=== PATIENT | male | born 1940 | race Caucasian/White ===

== ENCOUNTER → 2018-01-22 | Outpatient (CLI) | payer MEDICARE, BC ==
--- NOTE | 2018-01-23 06:56 | US ---
EXAMINATION TYPE: US carotid duplex BILAT DATE OF EXAM: 01/22/2018 COMPARISON: NONE CLINICAL HISTORY: H69.83 disorder of eustachian tube. EXAM MEASUREMENTS: RIGHT: Peak Systolic Velocity (PSV) cm/sec ----- Right CCA: 77.6 ----- Right ICA: 67.1 ----- Right ECA: 93.1 ICA/CCA ratio: 0.9 RIGHT: End Diastole cm/sec ----- Right CCA: 13.8 ----- Right ICA: 24.4 ----- Right ECA: 8.4 LEFT: Peak Systolic Velocity (PSV) cm/sec ----- Left CCA: 70.1 ----- Left ICA: 66.9 ----- Left ECA: 85.7 ICA/CCA ratio: 1.0 LEFT: End Diastole cm/sec ----- Left CCA: 13.3 ----- Left ICA: 23.3 ----- Left ECA: 4.4 VERTEBRALS (direction of flow): Right Vertebral: Antegrade Left Vertebral: Antegrade Rhythm: Normal Grayscale images show no significant plaque at carotid bulb level bilaterally. Velocity measurements and ratios in visualized portion of both internal carotid arteries is within normal limits. Tortuous course to the left internal carotid artery is noted by technologist. IMPRESSION: No hemodynamically significant stenosis is seen in either internal carotid artery.
--- NOTE | 2018-01-23 08:17 | ECHOF ---
Referral Reason:I63.9 Cerebral infarction R47.02 Dysphasia MEASUREMENTS -------- HEIGHT: 172.7 cm WEIGHT: 81.6 kg BP: 126/76 RVIDd: 3.4 cm (< 3.3) IVSd: 1.1 cm (0.6 - 1.1) LVIDd: 4.0 cm (3.9 - 5.3) LVPWd: 1.2 cm (0.6 - 1.1) IVSs: 1.4 cm LVIDs: 2.6 cm LVPWs: 1.4 cm LA Diam: 3.2 cm (2.7 - 3.8) LAESV Index (A-L): 26.00 ml/m Ao Diam: 3.3 cm (2.0 - 3.7) AV Cusp: 2.2 cm (1.5 - 2.6) MV EXCURSION: 15.293 mm (> 18.000) MV EF SLOPE: 33 mm/s (70 - 150) EPSS: 0.1 cm MV E Anthony: 0.74 m/s MV DecT: 197 ms MV A Anthony: 0.67 m/s MV E/A Ratio: 1.11 RAP: 5.00 mmHg RVSP: 37.14 mmHg FINDINGS -------- Sinus rhythm. This was a technically good study. The left ventricular size is normal. There is borderline concentric left ventricular hypertrophy. Overall left ventricular systolic function is normal with, an EF between 60 - 65 %. The right ventricle is mildly enlarged. Normal LA size by volume 22+/-6 ml/m2. The right atrium is normal in size. The aortic valve is trileaflet and appears structurally normal. The mitral valve is normal. Mild tricuspid regurgitation present. There is mild pulmonary hypertension. The right ventricular systolic pressure, as measured by Doppler, is 37.14mmHg. Trace/mild (physiologic) pulmonic regurgitation. The aortic root size is normal. Normal inferior vena cava with normal inspiratory collapse consistent with estimated right atrial pre ssure of 5 mmHg. There is no pericardial effusion. CONCLUSIONS -------- 1. Sinus rhythm. 2. This was a technically good study. 3. The left ventricular size is normal. 4. There is borderline concentric left ventricular hypertrophy. 5. Overall left ventricular systolic function is normal with, an EF between 60 - 65 %. 6. The right ventricle is mildly enlarged. 7. Normal LA size by volume 22+/-6 ml/m2. 8. The right atrium is normal in size. 9. The aortic valve is trileaflet and appears structurally normal. 10. The mitral valve is normal. 11. Mild tricuspid regurgitation present. 12. There is mild pulmonary hypertension. 13. The right ventricular systolic pressure, as measured by Doppler, is 37.14mmHg. 14. Trace/mild (physiologic) pulmonic regurgitation. 15. The aortic root size is normal. 16. Normal inferior vena cava with normal inspiratory collapse consistent with estimated right atrial pressure of 5 mmHg. 17. There is no pericardial effusion. INTEGRITY CONSULTANT: Loree Ndiaye RDCS
== END | disposition home or self-care (01) ==
LOC: RADECHMAIN 14:48
PROVIDERS: ATTEND Family Medicine
DX: I07.1 Rheumatic tricuspid insufficiency (principal); I27.20 Pulmonary hypertension, unspecified; I63.9 Cerebral infarction, unspecified
CPT/HCPCS: 93306; 93880

== ENCOUNTER → 2018-01-23 | Outpatient (CLI) | payer MEDICARE, BC ==
--- NOTE | 2018-01-23 23:43 | MR ---
History slurred speech. Visual disturbances. Comparison none. TECHNIQUE: Multiplanar multiecho imaging of the brain was performed with no contrast. FINDINGS: There is diffuse cerebral cortical atrophy. There is no mass effect nor midline shift. There is no si gn of intracranial hemorrhage. There is no evidence of a cortical infarct. There is multiple foci of abnormal increased signal in the moreno-white matter junction of both cerebral hemispheres total number is approximately 25 and some of these measure up to 1 cm. There is a 12 mm focus of increased signal in the lateral left thalamus consistent with lacunar infarct. There is a 12 mm area of white matter increased signal in the left temporal lobe consistent with additional lacunar infarct. The brainstem appears intact. Sella turcica appears normal. The left thalamic and left temporal lobe lesions have increased signal on the diffusion images suggestive of more acute infarct. There is some mucosal thickening in the maxillary and ethmoid sinuses. There is no evidence of orbita l mass. CONCLUSION: Cerebral atrophy. Numerous white matter lesions that measure up to 5 mm consistent with chronic small vessel ischemia. There are larger foci in the left thalamus and left temporal lobe consistent with a cute or subacute infarcts. No evidence of a cortical infarct. Ethmoid and maxillary sinusitis.
== END | disposition home or self-care (01) ==
LOC: RADMRIMAIN 18:34
PROVIDERS: ATTEND Family Medicine
DX: G31.9 Degenerative disease of nervous system, unspecified (principal); R90.82 White matter disease, unspecified
CPT/HCPCS: 70551

== ENCOUNTER → 2018-02-03 | Outpatient (CLI) | payer MEDICARE, BC ==
--- NOTE | 2018-02-03 11:40 | FL ---
Modified barium swallow. HISTORY: Dysphagia. Modified barium swallow was performed with the department of speech pathology. The patient was prese nted with various consistencies of barium. There is no evidence for aspiration or penetration. Full report is to follow from the department of speech pathology. Impression: No evidence for aspiration or penetration.
== END | disposition home or self-care (01) ==
LOC: RADFLMAIN 10:43
PROVIDERS: ATTEND Otolaryngology
DX: R13.10 Dysphagia, unspecified (principal)
CPT/HCPCS: 74230

== ENCOUNTER 2021-10-28 22:54 | Inpatient (IN) | payer BC, MEDICARE ==
[2021-10-28] MEDS ORDERED: NITROGLYCERIN OINT 1 INCH/GM PACKET TOPICAL STA (23:04)
--- NOTE | 2021-10-28 23:14 | ED ---
General Adult HPI - General Stated complaint: NSTEMI Time Seen by Provider: 10/28/21 22:57 Source: patient, RN notes reviewed, old records reviewed Mode of arrival: EMS - History of Present Illness Initial comments: 80-year-old male presenting as transfer from outside hospital with non-ST segment elevated [place]. Patient had chest pain radiating to his arms and upper back which is been present for the past several days. He had an initial negative troponin but his troponin did mildly elevated to 0.045. He was given nitroglycerin with resolution of his pain and Lovenox. He was transferred for cardiology evaluation. Patient denied associated diaphoresis or nausea. No significant pain at the time my evaluation. No previous history of CAD. - Related Data Home Medications Medication Instructions Recorded Confirmed Aspirin EC [Ecotrin] 325 mg PO DAILY 10/28/21 10/28/21 Desloratadine 5 mg PO HS 10/28/21 10/28/21 Krill Oil 500 mg PO DAILY 10/28/21 10/28/21 atenoloL [Tenormin] 25 mg PO HS 10/28/21 10/28/21 Allergies Allergy/AdvReac Type Severity Reaction Status Date / Time No Known Allergies Allergy Unverified 10/28/21 23:36 Review of Systems ROS Statement: Those systems with pertinent positive or pertinent negative responses have been documented in the HPI. ROS Other: All systems not noted in ROS Statement are negative. Past Medical History Past Medical History: Hypertension Additional Past Medical History / Comment(s): glaucoma, History of Any Multi-Drug Resistant Organisms: None Reported Additional Past Surgical History / Comment(s): hernia-groin Past Psychological History: No Psychological Hx Reported Smoking Status: Never smoker Past Alcohol Use History: Rare Past Drug Use History: None Reported General Exam General appearance: alert, in no apparent distress Head exam: Present: atraumatic, normocephalic Eye exam: Present: normal appearance, PERRL ENT exam: Present: normal exam Neck exam: Present: normal inspection. Absent: tenderness, meningismus Respiratory exam: Present: normal lung sounds bilaterally. Absent: respiratory distress, wheezes Cardiovascular Exam: Present: regular rate, normal rhythm GI/Abdominal exam: Present: soft. Absent: distended, tenderness, guarding Extremities exam: Present: normal inspection, normal capillary refill. Absent: pedal edema Back exam: Present: normal inspection Neurological exam: Present: alert, CN II-XII intact. Absent: motor sensory deficit Psychiatric exam: Present: normal affect, normal mood Skin exam: Present: warm, dry, intact. Absent: cyanosis, diaphoretic Course Vital Signs 10/28/21 23:09 Temperature 98.3 F Pulse Rate 65 Respiratory 15 Rate Blood Pressure 175/93 O2 Sat by Pulse 98 Oximetry EKG Findings - EKG Comments: EKG Findings:: EKG: Normal sinus rhythm, no ST segment elevation rate of 70, UT interval 112, QRS duration 86, QTC 414 Medical Decision Making - Medical Decision Making 80-year-old male with episode of chest pain and mildly elevated troponin. Upon arrival EKG showing sinus rhythm without ST segment elevation. Patient has essentially no active chest pain. He will be admitted to a monitored bed. I did discuss case with Dr. Oneil who will admit. He had received Lovenox and aspirin prior to transfer as well as sublingual nitro. He he's given Nitropaste in the emergency department. All laboratory testing will be repeated clinic CBC, CMP, PT/INR and troponin. Troponin levels will be trended. - Lab Data Result diagrams: 10/28/21 23:19 Lab Results 10/28/21 Range/Units 23:19 WBC 6.3 (3.8-10.6) k/uL RBC 4.32 (4.30-5.90) m/uL Hgb 14.8 (13.0-17.5) gm/dL Hct 44.3 (39.0-53.0) % MCV 102.5 H (80.0-100.0) fL MCH 34.1 (25.0-35.0) pg MCHC 33.3 (31.0-37.0) g/dL RDW 13.5 (11.5-15.5) % Plt Count 160 (150-450) k/uL MPV 8.3 Neutrophils % 55 % Lymphocytes % 32 % Monocytes % 6 % Eosinophils % 5 % Basophils % 1 % Neutrophils # 3.5 (1.3-7.7) k/uL Lymphocytes # 2.0 (1.0-4.8) k/uL Monocytes # 0.3 (0-1.0) k/uL Eosinophils # 0.3 (0-0.7) k/uL Basophils # 0.0 (0-0.2) k/uL Macrocytosis Slight Disposition Clinical Impression: Acute non-ST elevation myocardial infarction (NSTEMI) Disposition: ADMITTED IP TO THIS HOSP Condition: Stable Is patient prescribed a controlled substance at d/c from ED?: No Referrals: Jamal Oneil MD [Primary Care Provider] - 1-2 days Decision to Admit Reason: Admit from EC Decision Date: 10/28/21 Decision Time: 23:55
[2021-10-28] MEDS ORDERED: MORPHINE SULFATE 2 MG/ML SYRINGE IVP PRN (23:23)
[2021-10-28] MEDS ORDERED: ATORVASTATIN 40 MG TAB PO SCH (23:30)
[2021-10-28 23:34] LABS: Basophils % (A) 1 %; Eosinophils # (A) 0.3 k/uL (0-0.7); Eosinophils % (A) 5 %; HCT 44.3 % (39.0-53.0); HGB 14.8 gm/dL (13.0-17.5); Lymphocytes % (A) 32 %; MCH 34.1 pg (25.0-35.0); MCHC 33.3 g/dL (31.0-37.0); MCV 102.5 fL (80.0-100.0); Macrocytosis Slight; Mean Platelet Volume 8.3; Monocytes # (A) 0.3 k/uL (0-1.0); Monocytes % (A) 6 %; Neutrophils # (A) 3.5 k/uL (1.3-7.7); Neutrophils % (A) 55 %; Platelet Count 160 k/uL (150-450); RBC 4.32 m/uL (4.30-5.90); RDW 13.5 % (11.5-15.5); WBC 6.3 k/uL (3.8-10.6)
[2021-10-28 23:44] LABS: ALT 18 U/L (4-49); African American GFR (CKD) >90 (>60 ml/min/1.73 sqM); Anion Gap 6 mmol/L; Blood Urea Nitrogen 14 mg/dL (9-20); Calcium 9.3 mg/dL (8.4-10.2); Carbon Dioxide 26 mmol/L (22-30); Chloride 106 mmol/L (98-107); Glucose 99 mg/dL (74-99); Non-African American GFR(CKD) 80 (>60 ml/min/1.73 sqM); Sodium 138 mmol/L (137-145)
[2021-10-28 23:49] LABS: Magnesium 2.2 mg/dL (1.6-2.3); Potassium 5.7 mmol/L (3.5-5.1)
[2021-10-28 23:50] LABS: AST 43 U/L (17-59); Albumin 4.4 g/dL (3.5-5.0); Alkaline Phosphatase 51 U/L (38-126); Total Bilirubin 1.4 mg/dL (0.2-1.3); Total Protein 7.7 g/dL (6.3-8.2)
[2021-10-29 00:07] LABS: INR 1.3 (<1.2); Partial Thromboplastin Time 32.2 sec (22.0-30.0); Prothrombin Time 13.1 sec (9.0-12.0)
[2021-10-29] MEDS: NITROGLYCERIN OINT 1 INCH/GM PACKET TOPICAL SCH ×3 (00:55→18:50)
[2021-10-29] MEDS ORDERED: HEPARIN SODIUM 1,000 UN/ML (10ML VL) IV PRN (08:21)
[2021-10-29] MEDS ORDERED: HEPARIN SODIUM 1,000 UN/ML (10ML VL) IV ONE (08:21)
[2021-10-29] MEDS ORDERED: ALPRAZolam 0.25 MG TAB PO PRN (08:22)
[2021-10-29] MEDS ORDERED: ATORVASTATIN 80 MG TAB PO STA (08:22)
[2021-10-29] MEDS ORDERED: NITROGLYCERIN SL TABS 0.4 MG TAB SUBLINGUAL PRN ×2 (08:22→12:03)
[2021-10-29] MEDS ORDERED: ALPRAZolam 0.5 MG TAB PO PRN (08:22)
[2021-10-29] MEDS ORDERED: ASPIRIN 325 MG TAB PO STA (08:22)
[2021-10-29] MEDS ORDERED: HEPARIN SOD,PORK IN 0.45% NACL 25,000 UNIT in 0.45% NACL 1 250ML.BAG IV SCH (08:30)
[2021-10-29] MEDS ORDERED: ASPIRIN 81 MG PO SCH (09:00)
[2021-10-29] MEDS ORDERED: ASPIRIN 325 MG TAB PO SCH (09:00)
[2021-10-29 09:17] LABS: Chol/HDL Ratio 6.12 Ratio; LDL Cholesterol,Calculated 121.6 mg/dL (0.0-131.0)
[2021-10-29] MEDS: METOPROLOL TARTRATE 25 MG TAB PO SCH ×2 (09:27→19:58)
--- NOTE | 2021-10-29 10:31 | P.CRDCN ---
History of Present Illness Consult date: 10/29/21 History of present illness: HISTORY OF PRESENT ILLNESS: This is a 80-year-old male with a past medical history significant for hypertension and hyperlipidemia (not on rx meds for HLD). 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 We have been asked to see the patient in consultation for chest pain. Patient initially presented to [facility] with a chief complaint of chest pain. The patient was transferred to [facility] for further e valuation. Patient examined at the bedside. Patient states over the past week he has been having episodes of chest discomfort. He states the pain is a pressure-like sensation that goes into both of his arms. He also reports some numbness of his fingertips. He reports radiation into his back and in between his shoulder blades as well. He reports the pain is mostly with exertion such as walking to the mailbox. He states the pain is not worse with a deep breath or chest wall palpation. The patient denies any previous cardiac history. He denies having a previous stress test or cardiac catheterization. The patient is a lifetime nonsmoker. He denies any alcohol use. He also denies any drug use including marijuana. This morning he is complaining of mild chest pain with a reading of 1/10. EKG reveals sinus mechanism with nonspecific ST-T wave changes Laboratory data: WBC 6.2. Hemoglobin 14.8. Platelet count 160. Sodium 138. Potassium 5.7. BUN 14. Creatinine 0.91. Troponin 0.056. 0.075. Current home cardiac medications include aspirin 325 mg daily and atenolol 25 mg at night REVIEW OF SYSTEMS: At the time of my exam: CONSTITUTIONAL: Denies fever or chills. HEENT: Denies blurred vision, vision changes, or eye pain. Denies hemoptysis CARDIOVASCULAR: + chest pain. Denies orthopnea. Denies PND. Denies palpitations RESPIRATORY: Denies shortness of breath. GASTROINTESTINAL: Denies abdominal pain. Denies nausea or vomiting. HEMATOLOGIC: Denies bleeding disorders. GENITOURINARY: Denies any blood in urine. SKIN: Denies pruitis. Denies rash. PHYSICAL EXAM: VITAL SIGNS: Reviewed. GENERAL: Well-developed in no acute distress. HEENT: Head is normocephalic. Pupils are equal, round. Sclerae anicteric. Mucous membranes of the mouth are moist. Neck supple. No JVD or thyromegaly LUNGS: Respirations even and unlabored. Lungs essentially clear to auscultation bilaterally. HEART: Regular rate and rhythm. S1 and S2 heard. ABDOMEN: Soft. Nondistended. Nontender. EXTREMITIES: Normal range of motion. No clubbing or cyanosis. Peripheral pulses intact. No lower extremity edema NEUROLOGIC: Awake and alert. Oriented x 3. ASSESSMENT: Non-STEMI Hypertension Hyperlipidemia PLAN: Obtain 2D echo to assess cardiac structure and function Continue current cardiac medications including aspirin, atorvastatin, metoprolol, and nitro paste It is noted that the patient has an anaphylactic allergy to LYNDA inhibitors Begin IV heparin infusion NPO Patient undergo cardiac catheterization today with Dr. Awan Further recommendations pending patient's course Nurse practitioner note has been reviewed by physician. Signing provider agrees with the documented findings, assessment, and plan of care. Past Medical History Past Medical History: Hypertension Additional Past Medical History / Comment(s): COVID (08/23/21) glaucoma History of Any Multi-Drug Resistant Organisms: None Reported Additional Past Surgical History / Comment(s): hernia-groin Past Anesthesia/Blood Transfusion Reactions: No Reported Reaction Past Psychological History: No Psychological Hx Reported Smoking Status: Never smoker Past Alcohol Use History: Rare Past Drug Use History: None Reported - Past Family History Father Family Medical History: Myocardial Infarction (ID) Brother(s) Family Medical History: Myocardial Infarction (ID) Medications and Allergies Home Medications Medication Instructions Recorded Confirmed Type Aspirin EC [Ecotrin] 325 mg PO DAILY 10/28/21 10/28/21 History Brimonidine Tartrate/Timolol 1 drop BOTH EYES BID 10/28/21 10/28/21 History [Combigan 0.2%-0.5% Eye Drops] Desloratadine 5 mg PO HS 10/28/21 10/28/21 History Krill Oil 500 mg PO DAILY 10/28/21 10/28/21 History Travoprost [Travoprost 0.004%] 1 drop BOTH EYES HS 10/28/21 10/28/21 History atenoloL [Tenormin] 25 mg PO HS 10/28/21 10/28/21 History Allergies Allergy/AdvReac Type Severity Reaction Status Date / Time LYNDA Inhibitors Allergy Anaphylaxis Verified 10/29/21 00:24 Physical Exam Vitals: Vital Signs Temp Pulse Pulse Resp BP BP Pulse Ox 10/29/21 04:00 98 F 71 16 138/73 97 10/29/21 00:56 97.7 F 71 18 180/80 97 10/29/21 00:38 97.7 F 76 15 149/85 98 10/28/21 23:09 98.3 F 65 15 175/93 98 Intake and Output 10/28/21 10/29/21 10/29/21 22:59 06:59 14:59 Other: Voiding Method Toilet Weight 72.575 kg Results 10/28/21 23:19 10/28/21 23:19 Cardiac Enzymes 10/28/21 10/28/21 10/29/21 Range/Units 23:19 23:19 02:22 AST 43 (17-59) U/L Troponin I 0.065 H* 0.075 H* (0.000-0.034) ng/mL Coagulation 10/28/21 Range/Units 23:19 PT 13.1 H (9.0-12.0) sec APTT 32.2 H (22.0-30.0) sec CBC 10/28/21 Range/Units 23:19 WBC 6.3 (3.8-10.6) k/uL RBC 4.32 (4.30-5.90) m/uL Hgb 14.8 (13.0-17.5) gm/dL Hct 44.3 (39.0-53.0) % Plt Count 160 (150-450) k/uL Comprehensive Metabolic Panel 10/28/21 Range/Units 23:19 Sodium 138 (137-145) mmol/L Potassium 5.7 H (3.5-5.1) mmol/L Chloride 106 (98-107) mmol/L Carbon Dioxide 26 (22-30) mmol/L BUN 14 (9-20) mg/dL Creatinine 0.91 (0.66-1.25) mg/dL Glucose 99 (74-99) mg/dL Calcium 9.3 (8.4-10.2) mg/dL AST 43 (17-59) U/L ALT 18 (4-49) U/L Alkaline Phosphatase 51 (38-126) U/L Total Protein 7.7 (6.3-8.2) g/dL Albumin 4.4 (3.5-5.0) g/dL Current Medications Generic Name Dose Route Start Last Admin Trade Name Freq PRN Reason Stop Dose Admin Aspirin 325 mg 10/29/21 09:00 Aspirin 325 Mg Tab PO DAILY [facility] Atorvastatin Calcium 40 mg 10/28/21 23:30 10/29/21 00:34 Atorvastatin 40 Mg Tab PO 40 mg HS [facility] Administration Metoprolol Tartrate 25 mg 10/29/21 09:00 Metoprolol Tartrate 25 Mg Tab PO BID [facility] Morphine Sulfate 2 mg 10/28/21 23:23 Morphine Sulfate 2 Mg/Ml Syringe IVP Q5M PRN Chest Pain Nitroglycerin 1 inch 10/29/21 00:00 10/29/21 06:36 Nitroglycerin Oint 1 Inch/Gm Packet TOPICAL 1 inch Q6HR [facility] Administration Intake and Output 10/28/21 10/29/21 10/29/21 22:59 06:59 14:59 Other: Voiding Method Toilet Weight 72.575 kg 10/28/21 23:19 10/28/21 23:19
[2021-10-29 10:39] LABS: Basophils % (A) 0 %; Eosinophils # (A) 0.3 k/uL (0-0.7); Eosinophils % (A) 4 %; HCT 42.8 % (39.0-53.0); Lymphocytes # (A) 1.3 k/uL (1.0-4.8); Lymphocytes % (A) 20 %; MCH 33.9 pg (25.0-35.0); MCHC 32.6 g/dL (31.0-37.0); Macrocytosis Slight; Mean Platelet Volume 8.2; Monocytes # (A) 0.4 k/uL (0-1.0); Monocytes % (A) 6 %; Neutrophils # (A) 4.6 k/uL (1.3-7.7); Neutrophils % (A) 69 %; Platelet Count 153 k/uL (150-450); RBC 4.12 m/uL (4.30-5.90); WBC 6.7 k/uL (3.8-10.6)
[2021-10-29] MEDS ORDERED: LIDOCAINE 1% INJ 10MG/ML (20 ML MDV) ONE (10:51)
[2021-10-29] MEDS ORDERED: VERAPAMIL 2.5 MG/ML 2 ML AMP ONE (10:51)
[2021-10-29] MEDS ORDERED: fentaNYL (PF) 50 MCG/ML 2 ML AMP ONE (10:51)
[2021-10-29] MEDS ORDERED: HEPARIN SODIUM 1,000 UN/ML (10ML VL) ONE (10:51)
[2021-10-29] MEDS ORDERED: IV FLUID CONTINUATION 1,000 ML IV ONE (10:57)
[2021-10-29] MEDS ORDERED: fentaNYL (PF) 50 MCG/ML 2 ML AMP IV ONE (11:17)
[2021-10-29] MEDS ORDERED: LIDOCAINE 1% INJ 10MG/ML (20 ML MDV) SQ ONE (11:18)
[2021-10-29] MEDS: VERAPAMIL SYRINGE (5 MG/10 ML) INTRAARTER ONE ×2 (11:20→11:33)
[2021-10-29] MEDS ORDERED: TICAGRELOR 90 MG TAB ONE (11:30)
--- NOTE | 2021-10-29 11:30 | ECHOF ---
Referral Reason:nstemi MEASUREMENTS -------- HEIGHT: 175.3 cm WEIGHT: 72.6 kg BP: RVIDd: 2.9 cm (< 3.3) IVSd: 1.3 cm (0.6 - 1.1) LVIDd: 4.3 cm (3.9 - 5.3) LVPWd: 1.2 cm (0.6 - 1.1) IVSs: 1.7 cm LVIDs: 3.2 cm LVPWs: 1.7 cm LA Diam: 3.6 cm (2.7 - 3.8) LAESV Index (A-L): 33.23 ml/m Ao Diam: 3.3 cm (2.0 - 3.7) AV Cusp: 1.9 cm (1.5 - 2.6) LA Diam: 3.7 cm (2.7 - 3.8) MV EXCURSION: 17.354 mm (> 18.000) MV EF SLOPE: 20 mm/s (70 - 150) EPSS: 0.4 cm MV E Anthony: 0.49 m/s MV DecT: 291 ms MV A Anthony: 0.63 m/s MV E/A Ratio: 0.77 RAP: 5.00 mmHg RVSP: 37.51 mmHg FINDINGS -------- Sinus rhythm. This was a technically good study. The left ventricular size is normal. There is mild concentric left ventricular hypertrophy. The right ventricle is normal in size. LA is midly dilated 29-33ml/m2. The right atrial size is normal. There is mild aortic valve sclerosis. There is no evidence of aortic regurgitation. Mild mitral regurgitation is present. Mild tricuspid regurgitation present. There is mild pulmonary hypertension. The right ventricular systolic pressure, as measured by Doppler, is 37.51mmHg. Trace/mild (physiologic) pulmonic regurgitation. There is no pericardial effusion. CONCLUSIONS -------- 1. The left ventricular size is normal. 2. There is mild concentric left ventricular hypertrophy. 3. The right ventricle is normal in size. 4. LA is midly dilated 29-33ml/m2. 5. The right atrial size is normal. 6. There is mild aortic valve sclerosis. 7. Mild mitral regurgitation is present. 8. Mild tricuspid regurgitation present. 9. There is mild pulmonary hypertension. 10. The right ventricular systolic pressure, as measured by Doppler, is 37.51mmHg. 11. Trace/mild (physiologic) pulmonic regurgitation. 12. There is no pericardial effusion. A AND P MECHANIC: Gissel Cowan RDCS
[2021-10-29] MEDS ORDERED: TICAGRELOR 90 MG TAB PO ONE (11:32)
--- NOTE | 2021-10-29 11:39 | P.HPIM ---
History of Present Illness H&P Date: 10/29/21 Chief Complaint: NSTEMI transferred from [facility] This is a 80-year-old gentleman with past medical history of hypertension, covid (08/23/21), glaucoma, hyperlipidemia, hypertension,transferred in from [facility] with elevated troponins,0.065,0.075, EKG reporting normal sinus rhythm with non specific ST segment elevation, chest pressure in bilateral arms radiating up into his shoulder blades worsened by exertion-recurring episodes, worsening over the last week. No reproducible chest pain. This morning complains of mild chest pressure, denies lightheadedness dizziness or focal deficits. Denies shortness of breath. Potassium on admission 5.7, repeat level ordered, INR 1.3-decreased to 1. Hematology unremarkable with the exception of elevated MCV, 104. Denies alcohol or polysubstance use. Lipid panel reporting triglycerides 191, cholesterol 191, LDL 121.6, HDL 31.2, not on statin at home. Coronavirus not detected. Evaluated by cardiology, recommendations noted and appreciated. Review of Systems ROS Statement: Those systems with pertinent positive or pertinent negative responses have been documented in the HPI. ROS Other: All systems not noted in ROS Statement are negative. Past Medical History Past Medical History: Hypertension Additional Past Medical History / Comment(s): COVID (08/23/21) glaucoma History of Any Multi-Drug Resistant Organisms: None Reported Additional Past Surgical History / Comment(s): hernia-groin Past Anesthesia/Blood Transfusion Reactions: No Reported Reaction Past Psychological History: No Psychological Hx Reported Smoking Status: Never smoker Past Alcohol Use History: Rare Past Drug Use History: None Reported - Past Family History Father Family Medical History: Myocardial Infarction ([place]) Brother(s) Family Medical History: Myocardial Infarction ([place]) Medications and Allergies Home Medications Medication Instructions Recorded Confirmed Type Aspirin EC [Ecotrin] 325 mg PO DAILY 10/28/21 10/28/21 History Brimonidine Tartrate/Timolol 1 drop BOTH EYES BID 10/28/21 10/28/21 History [Combigan 0.2%-0.5% Eye Drops] Desloratadine 5 mg PO HS 10/28/21 10/28/21 History Krill Oil 500 mg PO DAILY 10/28/21 10/28/21 History Travoprost [Travoprost 0.004%] 1 drop BOTH EYES HS 10/28/21 10/28/21 History atenoloL [Tenormin] 25 mg PO HS 10/28/21 10/28/21 History Allergies Allergy/AdvReac Type Severity Reaction Status Date / Time LYNDA Inhibitors Allergy Anaphylaxis Verified 10/29/21 00:24 Physical Exam Vitals: Vital Signs Temp Pulse Pulse Resp BP BP Pulse Ox 10/29/21 08:00 71 16 159/83 97 10/29/21 04:00 98 F 71 16 138/73 97 10/29/21 00:56 97.7 F 71 18 180/80 97 10/29/21 00:38 97.7 F 76 15 149/85 98 10/28/21 23:09 98.3 F 65 15 175/93 98 Intake and Output 10/28/21 10/29/21 10/29/21 22:59 06:59 14:59 Other: Voiding Method Toilet Weight 72.575 kg PHYSICAL EXAM: VITAL SIGNS: [As above] GENERAL: Sitting up in bed, no acute distress HEENT: Conjunctivae normal. eyes normal. NECK: No JVD. No thyroid enlargement. No LNs CARDIOVASCULAR: S1, S2 regular. No murmur RESPIRATION: Breath sounds diminished in the bases. No rhonchi or crackles. No bronchial breathing. ABDOMEN: Soft, nontender . No guarding. no masses palpable. No ascites, No hepatosplenomegaly.Bowel sounds heard. LEGS: No edema. no swelling PSYCHIATRY: Alert and oriented X3, mood and affect normal. NERVOUS SYSTEM: Cranial N 2-12 grossly normal. No focal deficits. Strength and sensation grossly intact. Skin: Warm and dry, no rash Results CBC & Chem 7: 10/29/21 10:05 10/28/21 23:19 Labs: Abnormal Lab Results - Last 24 Hours (Table) 10/28/21 10/28/21 10/28/21 Range/Units 23:19 23:19 23:19 RBC (4.30-5.90) m/uL MCV 102.5 H (80.0-100.0) fL PT 13.1 H (9.0-12.0) sec INR 1.3 H (<1.2) APTT 32.2 H (22.0-30.0) sec Potassium 5.7 H (3.5-5.1) mmol/L Total Bilirubin 1.4 H (0.2-1.3) mg/dL Troponin I (0.000-0.034) ng/mL Triglycerides (0.00-149.00) mg/dL HDL Cholesterol (40.00-60.00) mg/dL 10/28/21 10/29/21 10/29/21 Range/Units 23:19 02:22 02:22 RBC (4.30-5.90) m/uL MCV (80.0-100.0) fL PT (9.0-12.0) sec INR (<1.2) APTT (22.0-30.0) sec Potassium (3.5-5.1) mmol/L Total Bilirubin (0.2-1.3) mg/dL Troponin I 0.065 H* 0.075 H* (0.000-0.034) ng/mL Triglycerides 191.00 H (0.00-149.00) mg/dL HDL Cholesterol 31.20 L (40.00-60.00) mg/dL 10/29/21 Range/Units 10:05 RBC 4.12 L (4.30-5.90) m/uL MCV 104.0 H (80.0-100.0) fL PT (9.0-12.0) sec INR (<1.2) APTT (22.0-30.0) sec Potassium (3.5-5.1) mmol/L Total Bilirubin (0.2-1.3) mg/dL Troponin I (0.000-0.034) ng/mL Triglycerides (0.00-149.00) mg/dL HDL Cholesterol (40.00-60.00) mg/dL Thrombosis Risk Factor Assmnt - Choose All That Apply Each Factor Represents 1 point: Acute [place] Each Risk Factor Represents 3 Points: Age 75 years or older Other congenital or acquired thrombophilia - If yes, enter type in comment: No Thrombosis Risk Factor Assessment Total Risk Factor Score: 4 Thrombosis Risk Factor Assessment Level: Moderate Risk Assessment and Plan Assessment: Acute Non-STEMI ALLERGY, anaphylactic to LYNDA inhibitors Hyperkalemia, repeat is pending Hypertension Hyperlipidemia Plan: Continue on current medication regime ,monitoring and symptomatic t reatment. Anticoagulated with IV heparin drip.Maintain statin, aspirin, beta sandra, nitroglycerin benita. Repeat potassium level pending. 2-D echo, cardiac catheterization pending. The impression and plan of care has been dictated as directed. : I performed a history and examination of this patient, discussed the same with the dictator. I agree with the dictator's note ,documented as a scribe. Any additional findings or plans will be noted.
[2021-10-29] MEDS ORDERED: NITROGLYCERIN 1000MCG/10ML SYRINGE INTRACORON ONE (11:44)
[2021-10-29] MEDS ORDERED: IOPAMIDOL-370 125ML BTL INJ ONE (11:49)
[2021-10-29] MEDS ORDERED: IOPAMIDOL-370 100ML BTL INJ ONE (11:53)
[2021-10-29] MEDS ORDERED: ATROPINE SULFATE 0.1 MG/ML 10ML SYRINGE IV PRN (12:03)
[2021-10-29] MEDS ORDERED: ZOLPIDEM 5 MG TAB PO PRN (12:03)
[2021-10-29] MEDS ORDERED: MAG HYDROX/AL HYDROX/SIMETH 30 ML CUP PO PRN (12:03)
[2021-10-29] MEDS ORDERED: RX INFO: IV CONTRAST WAS GIVEN 1 EACH MISC MISCELLANE PRN (12:03)
--- NOTE | 2021-10-29 12:12 | P.CARDCATH ---
Date of Procedure: 10/29/21 Description of Procedure: Cardiac Catheterization: The patient presented with symptoms of new onset exertional chest discomfort, radiating to the arm and to the back. He had mild troponin elevation consistent with non-STEMI. He has a history of hypertension and hyperlipidemia but no documented CAD. Recommendations were made regarding cardiac catheterization, the risks and the complications were discussed with the patient who is in full understanding and agreement. Procedure Description: Patient was brought to component lab tech in fasting semi-sedated state after receiving Fentanyl and Benadryl achieiving moderate conscious sedated state. Using Xylocaine Anesthesia and Seldinger technique, a 6-Portuguese sheath was introduced in the right radial artery . Subsequently, selective right the left coronary angiography performed using a 5- Portuguese 3.5 bend Sofia catheter. Multiple views of the coronary artery including hemiaxial views were obtained. The pigtail catheter was used to cross the aortic valve and LVEDP was calculated. Following that, catheter was removed. There was no immediate complication. Of note, the patient received a total of 6 units of intravenous heparin as well as intra-arterial verapamil. There was no immediate complications. Images were reviewed Findings: Fluoroscopy: There is calcifications involving the LAD Left main: Is a large size vessel, bifurcating into LAD and left circumflex, left main has no evidence of high-grade stenosis. LAD: This is a large size vessel, reaches to the apex with a wraparound the apex segment, giving rise to a large proximal diagonal branch that has intimal disease up to 70% proximally. The proximal LAD at the takeoff of the diagonal branch is calcified and has about a 40% stenosis, in the midsegment of the LAD after the septal appliance painter and refinisher there is a 99% stenosis. The rest of the vessel has no high-grade stenosis. Left circumflex: This is a dominant large size vessel, giving rise to a large proximal obtuse marginal branch, distally bifurcating into PDA and PLV, the circumflex has mild intimal disease with no high-grade stenosis. RCA: This is a nondominant small-sized vessel, has a superior takeoff, the right coronary artery mid segment has a 40-50% stenosis. Left Ventriculogram: Was not performed Hemodynamics: There was no gradient across the aortic valve, LVEDP 20-25 mmHg Conclusion: 1. Calcified LAD 2. Severe stenosis in the mid LAD 3. Mild to moderate disease in proximal LAD and mid RCA 4. Elevated LVEDP Recommendations: In view of the presentations and the symptoms have recommended to proceed with angioplasty and stenting of the LAD, the procedure and the risks were discussed with the patient and he is in full understanding and agreement.
[2021-10-29] MEDS ORDERED: SODIUM CHLORIDE 0.9% 1,000 ML in EMPTY BAG 1 BAG IV SCH (12:15)
--- NOTE | 2021-10-29 12:17 | P.CARDCATH ---
Date of Procedure: 10/29/21 Description of Procedure: PERCUTANEOUS TRANSLUMINAL CORONARY ANGIOPLASTY CLINICAL INFORMATION: The patient has a history of hypertension and hyperlipidemia who presented with non-STEMI, his cardiac catheterization showed critical stenosis in the mid LAD. Recommendations were made regarding angioplasty and stenting, the procedure as well as the risk and the complications were discussed with the patient. PROCEDURE: A 6 Lithuanian 3.75 EBU guiding catheter was introduced into the system. After cannulating the left main, a 0.014 balanced medium J-wire was advanced across the lesion and positioned distally. Following that a 2.5 x 12 mm Treck balloon was advanced into inflation at 8 presley were done. Following that a [3.0 x 18 mm [facility]] stent was deployed. It was dilated at 16. After the last inflation, after appropriate wait, the balloon and the guidewire were withdrawn back into the guiding catheter. Images were obtained and repeated. Those images reveal stable successful stenting. At that point, the guiding catheter, the balloon, and guidewire were removed. The sheath was [removed]. Hemostasis was obtained with deployment of a TR band. There were no immediate complications. The patient was returned to the room in stable condition. Of note, the patient received 6000 units of heparin as well as Brilinta. He had chest discomfort and EKG changes that resolved at the end of the procedure. His ACT was follow. RESULTS: Successful stenting of the [mid LAD] with reduction of stenosis from 99 % to 0 %. RECOMMENDATIONS: [ The patient will be continued on dual antiplatelet treatment for one year, in addition to statin and aggressive coronary risk modifications. He has ALLERGY to LYNDA inhibitor. Those findings and recommendations were discussed with the and his family who are in full understanding and agreement] Sedation duration 37 minutes.
[2021-10-29 16:04] LABS: African American GFR (CKD) >90 (>60 ml/min/1.73 sqM); Anion Gap 7 mmol/L; Blood Urea Nitrogen 12 mg/dL (9-20); Calcium 9.2 mg/dL (8.4-10.2); Carbon Dioxide 28 mmol/L (22-30); Chloride 103 mmol/L (98-107); Glucose 161 mg/dL (74-99); Non-African American GFR(CKD) 82 (>60 ml/min/1.73 sqM); Potassium 4.1 mmol/L (3.5-5.1); Sodium 138 mmol/L (137-145)
[2021-10-29] MEDS: PANTOPRAZOLE 40 MG/10 ML VIAL IVP SCH (16:24)
[2021-10-29] MEDS: BRIMONIDINE TARTRATE 0.2% DROPS 5 ML BTL BOTH EYES SCH ×2 (16:24→19:58)
[2021-10-29 18:09] VITALS: BMI 23.6
[2021-10-29] MEDS: TIMOLOL 0.5% OPHTH DROPS 5 ML BTL BOTH EYES SCH (19:59)
[2021-10-29] MEDS ORDERED: LATANOPROST 0.005% OPHTH DROPS 2.5 ML BTL BOTH EYES SCH (21:00)
[2021-10-30] MEDS ORDERED: HEPARIN SODIUM,PORCINE 2,500 UNIT in SODIUM CHLORIDE 0.9% 250 ML IRRIGATION PRN (07:00)
[2021-10-30] MEDS ORDERED: HEPARIN SODIUM,PORCINE 10,000 UNIT in SODIUM CHLORIDE 0.9% 1,000 ML IRRIGATION PRN (07:00)
[2021-10-30 07:59] LABS: Basophils % (A) 0 %; Eosinophils # (A) 0.2 k/uL (0-0.7); Eosinophils % (A) 4 %; HCT 41.4 % (39.0-53.0); HGB 13.2 gm/dL (13.0-17.5); Lymphocytes # (A) 1.4 k/uL (1.0-4.8); Lymphocytes % (A) 22 %; MCH 33.3 pg (25.0-35.0); MCHC 31.9 g/dL (31.0-37.0); MCV 104.3 fL (80.0-100.0); Macrocytosis Slight; Mean Platelet Volume 7.8; Monocytes # (A) 0.3 k/uL (0-1.0); Monocytes % (A) 5 %; Neutrophils # (A) 4.4 k/uL (1.3-7.7); Neutrophils % (A) 68 %; Platelet Count 158 k/uL (150-450); RBC 3.97 m/uL (4.30-5.90); RDW 13.6 % (11.5-15.5); WBC 6.5 k/uL (3.8-10.6)
[2021-10-30 08:06] LABS: INR 0.9 (<1.2); Prothrombin Time 10.3 sec (9.0-12.0)
[2021-10-30] MEDS: METOPROLOL TARTRATE 25 MG TAB PO SCH (08:13)
[2021-10-30] MEDS: PANTOPRAZOLE 40 MG/10 ML VIAL IVP SCH (08:13)
[2021-10-30] MEDS: TIMOLOL 0.5% OPHTH DROPS 5 ML BTL BOTH EYES SCH (08:14)
[2021-10-30] MEDS: BRIMONIDINE TARTRATE 0.2% DROPS 5 ML BTL BOTH EYES SCH (08:14)
[2021-10-30 08:18] LABS: African American GFR (CKD) >90 (>60 ml/min/1.73 sqM); Anion Gap 4 mmol/L; Blood Urea Nitrogen 12 mg/dL (9-20); Calcium 8.8 mg/dL (8.4-10.2); Carbon Dioxide 28 mmol/L (22-30); Chloride 106 mmol/L (98-107); Glucose 108 mg/dL (74-99); Non-African American GFR(CKD) 79 (>60 ml/min/1.73 sqM); Potassium 4.2 mmol/L (3.5-5.1); Sodium 138 mmol/L (137-145)
--- NOTE | 2021-10-30 08:58 | P.PN ---
Subjective Progress Note Date: 10/30/21 The patient presented with non-STEMI, underwent cardiac catheterization, was found to have severe stenosis in the mid LAD and underwent stenting of that vessel. He is doing well this morning, ambulating without difficulties. He denies any chest discomfort, dizziness or palpitations. He continues to be in sinus mechanism. His EKG showed biphasic T waves anteriorly. He continues to be on aspirin, Brilinta, Lipitor 80 mg daily, metoprolol 25 mg twice a day His echocardiogram showed normal left ventricle systolic function with mild mitral and tricuspid regurgitation. Head: Normocephalic. Eyes: Sclerae nonicteric. Neck: Good carotid upstroke, no bruit, no jugular venous distention. Lungs: Clear to auscultation. Heart: Regular rate and rhythm, S1-S2, no S3, no murmur or rub. Abdomen: Soft nontender, positive bowel sounds no organomegaly. Extremities: No edema, intact distal pulses. Right radial pulse intact Impression: 1. [ Status post non-STEMI with stenting of the LAD] 2. [ History of hypertension] 3. [ History of hyperlipidemia] Plan: 1. [ Continue present therapy] 2. [ Increased physical activity] 3. [ Discharged home today] 4. [ Follow-up as an outpatient] Objective - Vital Signs Vital signs: Vital Signs Temp 97.5 F L 10/30/21 04:00 Pulse 64 10/30/21 08:00 Resp 16 10/30/21 08:00 BP 164/74 10/30/21 08:00 Pulse Ox 100 10/30/21 08:00 Intake & Output 10/29/21 10/30/21 10/30/21 18:59 06:59 18:59 Intake Total 440 118 Balance 440 118 Weight 72.575 kg Intake: IV 200 Oral 240 118 Other: Voiding Method Toilet # Voids 2 1 - Labs CBC & Chem 7: 10/30/21 07:07 10/30/21 07:07 Labs: Abnormal Lab Results - Last 24 Hours (Table) 10/29/21 10/29/21 10/29/21 Range/Units 02:22 10:05 14:44 RBC 4.12 L (4.30-5.90) m/uL MCV 104.0 H (80.0-100.0) fL APTT 44.3 H (22.0-30.0) sec Glucose (74-99) mg/dL Triglycerides 191.00 H (0.00-149.00) mg/dL HDL Cholesterol 31.20 L (40.00-60.00) mg/dL 10/29/21 10/30/21 10/30/21 Range/Units 14:44 07:07 07:07 RBC 3.97 L (4.30-5.90) m/uL MCV 104.3 H (80.0-100.0) fL APTT (22.0-30.0) sec Glucose 161 H 108 H (74-99) mg/dL Triglycerides (0.00-149.00) mg/dL HDL Cholesterol (40.00-60.00) mg/dL
[2021-10-30] MEDS ORDERED: TICAGRELOR 90 MG TAB PO SCH (09:00)
[2021-10-30] MEDS ORDERED: ASPIRIN 81 MG PO SCH (09:00)
[2021-10-30 11:59] VITALS: BP 178/81; PULSE 65; RESP 16; TEMP 97.4
--- NOTE | 2021-10-30 12:30 | P.DS ---
Providers Date of admission: 10/28/21 23:23 Expected date of discharge: 10/30/21 Attending physician: Jamal Oneil Consults: 10/28/21 23:23 Consult Physician Urgent Consulting Provider: Alan Souza Consult Reason/Comments: NSTEMI Do you want consulting provider notified?: Yes 10/29/21 12:03 Consult Physician Routine Consulting Provider: [facility] Consult Reason/Comments: Post Interventional patient Do you want consulting provider notified?: Already Contacted Primary care physician: Jamal Oneil [place] [facility] Course: Final Diagnoses: Acute Non-STEMI, stenting of the LAD ALLERGY, anaphylactic to LYNDA inhibitors Hyperkalemia, resolved Hypertension Hyperlipidemia Hospital course:This is a 80-year-old gentleman with past medical history of hypertension, covid (08/23/21), glaucoma, hyperlipidemia, hypertension,transferred in from [facility] with elevated troponins,0.065,0.075, EKG reporting normal sinus rhythm with non specific ST segment elevation, chest pressure in bilateral arms radiating up into his shoulder blades worsened by exertion-recurring episodes, worsening over the last week. No reproducible chest pain. This morning complains of mild chest pressure, denies lightheadedness dizziness or focal deficits. Denies shortness of breath. Potassium on admission 5.7, repeat level ordered, INR 1.3-decreased to 1. Hematology unremarkable with the exception of elevated MCV, 104. Denies alcohol or polysubstance use. Lipid panel reporting triglycerides 191, cholesterol 191, LDL 121.6, HDL 31.2, not on statin at home. Coronavirus not detected. Evaluated by cardiology, recommendations noted and appreciated. Status post cardiac catheterization reporting severe stenosis of the mid LAD, with subsequent stenting. Echo reported normal LV function with mild mitral and tricuspid regurgitation. Tolerated procedure well. Telemetry sinus rhythm. Denies chest pain, palpitations or shortness of breath. Cleared by cardiology f or discharge. Patient will be discharged home in stable condition with guarded prognosis. The impression and plan of care has been dictated as directed. : I performed a history and examination of this patient, discussed the same with the dictator. I agree with the dictator's note ,documented as a scribe. Any additional findings or plans will be noted. Patient Condition at Discharge: Stable Plan - Discharge Summary Discharge Rx Participant: No New Discharge Prescriptions: New Aspirin 81 mg PO DAILY Metoprolol Tartrate [Lopressor] 25 mg PO BID #180 tab Nitroglycerin Sl Tabs [Nitrostat] 0.4 mg SUBLINGUAL Q5M PRN #25 tab PRN Reason: Chest Pain Pantoprazole [Protonix] 40 mg PO AC-BRKFST #30 tab Ticagrelor [Brilinta] 90 mg PO BID #180 tab Atorvastatin [Lipitor] 80 mg PO HS #90 tab Continue Travoprost [Travoprost 0.004%] 1 drop BOTH EYES HS Desloratadine 5 mg PO HS Brimonidine Tartrate/Timolol [Combigan 0.2%-0.5% Eye Drops] 1 drop BOTH EYES BID Discontinued atenoloL [Tenormin] 25 mg PO HS Aspirin EC [Ecotrin] 325 mg PO DAILY Krill Oil 500 mg PO DAILY Discharge Medication List Brimonidine Tartrate/Timolol [Combigan 0.2%-0.5% Eye Drops] 1 drop BOTH EYES BID 10/28/21 [History] Desloratadine 5 mg PO HS 10/28/21 [History] Travoprost [Travoprost 0.004%] 1 drop BOTH EYES HS 10/28/21 [History] Aspirin 81 mg PO DAILY 10/30/21 [Rx] Atorvastatin [Lipitor] 80 mg PO HS #90 tab 10/30/21 [Rx] Metoprolol Tartrate [Lopressor] 25 mg PO BID #180 tab 10/30/21 [Rx] Nitroglycerin Sl Tabs [Nitrostat] 0.4 mg SUBLINGUAL Q5M PRN #25 tab 10/30/21 [Rx] Pantoprazole [Protonix] 40 mg PO AC-BRKFST #30 tab 10/30/21 [Rx] Ticagrelor [Brilinta] 90 mg PO BID #180 tab 10/30/21 [Rx] Follow up Appointment(s)/Referral(s): Evita Awan MD [STAFF PHYSICIAN] - 1 Week Jamal Oneil MD [Primary Care Provider] - 3 Days
[2021-10-30] MEDS ORDERED: ATORVASTATIN 80 MG TAB PO SCH (21:00)
[2021-10-31] MEDS ORDERED: PANTOPRAZOLE 40 MG TABLET PO SCH (07:30)
== END 2021-10-30 14:57 | disposition home or self-care (01) | DRG 247 ==
LOC: EC 22:54 → 3SCARD 23:23
PROVIDERS: ADMIT Family Medicine; ATTEND Family Medicine
DX: I21.4 Non-ST elevation (NSTEMI) myocardial infarction (principal); E78.00 Pure hypercholesterolemia, unspecified; Z20.822 Contact with and (suspected) exposure to COVID-19; I25.10 Atherosclerotic heart disease of native coronary artery without angina pectoris; I08.1 Rheumatic disorders of both mitral and tricuspid valves; I10 Essential (primary) hypertension; E78.5 Hyperlipidemia, unspecified; E87.5 Hyperkalemia; K40.90 Unilateral inguinal hernia, without obstruction or gangrene, not specified as recurrent; H40.9 Unspecified glaucoma; Z79.82 Long term (current) use of aspirin; Z79.899 Other long term (current) drug therapy; Z86.16 Personal history of COVID-19; Z82.49 Family history of ischemic heart disease and other diseases of the circulatory system; Z88.8 Allergy status to other drugs, medicaments and biological substances
CPT/HCPCS: 36415; 80048; 80053; 80061; 83735; 84484; 85025; 85610; 85730; 87635; 93005; 93306; 93458; 99285

== ENCOUNTER 2023-12-09 16:01 | Inpatient (IN) | payer MEDICARE ==
--- NOTE | 2023-12-09 16:25 | ED ---
Abdominal Pain HPI - General Chief Complaint: Abdominal Pain Stated Complaint: Sob Time Seen by Provider: 12/09/23 16:07 Source: patient, family Mode of arrival: ambulatory Limitations: no limitations - History of Present Illness Initial Comments: Memo is an 83-year-old male who was sent to the ER today by primary care. Memo reported to his family that he been having about a month of right upper quadrant abdominal pain and soft stools. Patient denies any nausea vomiting or weight loss. Patient reports his last colonoscopy was 1 year ago and was normal. Patient's primary care did some labs which resulted with multiple critical abnormalities including evidence of acute liver failure, acute kidney injury. Decision was made to send the patient to the ER for further evaluation and imaging and likely admission with GI and surgical consults. - Related Data Home Medications Medication Instructions Recorded Confirmed Brimonidine Tartrate/Timolol 1 drop BOTH EYES BID 10/28/21 10/28/21 [Combigan 0.2%-0.5% Eye Drops] Desloratadine 5 mg PO HS 10/28/21 10/28/21 Travoprost [Travoprost 0.004%] 1 drop BOTH EYES HS 10/28/21 10/28/21 Previous Rx's Medication Instructions Recorded Aspirin 81 mg PO DAILY 10/30/21 Atorvastatin [Lipitor] 80 mg PO HS #90 tab 10/30/21 Metoprolol Tartrate [Lopressor] 25 mg PO BID #180 tab 10/30/21 Nitroglycerin Sl Tabs [Nitrostat] 0.4 mg SUBLINGUAL Q5M PRN #25 tab 10/30/21 Pantoprazole [Protonix] 40 mg PO AC-BRKFST #30 tab 10/30/21 Ticagrelor [Brilinta] 90 mg PO BID #180 tab 10/30/21 Allergies Allergy/AdvReac Type Severity Reaction Status Date / Time LYNDA Inhibitors Allergy Anaphylaxis Verified 10/29/21 00:24 Review of Systems ROS Statement: Those systems with pertinent positive or pertinent negative responses have been documented in the HPI. ROS Other: All systems not noted in ROS Statement are negative. Past Medical History Past Medical History: Hypertension Additional Past Medical History / Comment(s): COVID (08/23/21) glaucoma History of Any Multi-Drug Resistant Organisms: None Reported Past Surgical History: Heart Catheterization With Stent, Hernia Repair Additional Past Surgical History / Comment(s): hernia-groin, cataract Past Anesthesia/Blood Transfusion Reactions: No Reported Reaction Past Psychological History: No Psychological Hx Reported Smoking Status: Never smoker Past Alcohol Use History: Rare Past Drug Use History: None Reported - Past Family History Father Family Medical History: Myocardial Infarction ([place]) Brother(s) Family Medical History: Myocardial Infarction ([place]) General Exam - General Exam Comments Initial Comments: Physical Exam GENERAL: Patient is well-developed and well-nourished. Patient is nontoxic and well- hydrated and is in no distress. HENT: Normocephalic, Atraumatic. EYES: PERRL, EOMI PULMONARY: Unlabored respirations. No audible rales rhonchi or wheezing was noted. CARDIOVASCULAR: There is a regular rate and rhythm without any murmurs gallops or rubs. ABDOMEN: Mild tenderness to deep palpation in the right upper quadrant SKIN: Skin is clear with no lesions or rashes and otherwise unremarkable. : Deferred NEUROLOGIC: Patient is alert and oriented x3. Moving all extremities spontaneously MUSCULOSKELETAL: Normal extremities with adequate strength and full range of motion. No lower extremity swelling or edema. No calf tenderness. PSYCHIATRIC: Normal psychiatric evaluation. Limitations: no limitations Course Vital Signs 12/09/23 16:04 Temperature 97.4 F L Pulse Rate 60 Respiratory 16 Rate Blood Pressure 186/88 O2 Sat by Pulse 96 Oximetry Medical Decision Making - Medical Decision Making Was pt. sent in by a medical professional or institution (, PA, [employer], urgent c are, hospital, or fci...) When possible be specific @ -Yes Dr. Simms Did you speak to anyone other than the patient for history (EMS, parent, family, police, friend...)? What history was obtained from this source @ -Dr. Herman, patient's family at bedside Did you review nursing and triage notes (agree or disagree)? Why? @ -I reviewed and agree with nursing and triage notes Were old charts reviewed (outside hosp., previous admission, EMS record, old EKG, old radiological studies, urgent care reports/EKG's, fci records)? Report findings @ -Previous labs were reviewed Differential Diagnosis (chest pain, altered mental status, abdominal pain women, abdominal pain men, vaginal bleeding, weakness, fever, dyspnea, syncope, headache, dizziness, GI bleed, back pain, seizure, CVA, palpatations, mental health)? @ -Differential Abdominal Pain Men: Appendicitis, cholecystitis, diverticulosis, ischemic bowel, pancreatitis, hepatitis, UTI, gastroenteritis, AAA, incarcerated hernia, bowel obstruction, constipation, inflammatory bowel, hepatitis, peptic ulcer disease, splenic infarction, perforated viscus, testicular torsion, this is not meant to be an all-inclusive list EKG interpreted by me (3pts min.). @ -As above X-rays interpreted by me (1pt min.). @ -None done CT interpreted by me (1pt min.). @ -No free air, no obvious evidence of metastatic disease U/S interpreted by me (1pt. min.). @ -None done What testing was considered but not performed or refused? (CT, X-rays, U/S, labs)? Why? @ -CT with contrast however could not be completed due to low GFR, MRI of the abdomen What meds were considered but not given or refused? Why? @ -None Did you discuss the management of the patient with other professionals (professionals i.e. , PA, [employer], lab, RT, psych nurse, social science instructor, software manager, teacher, administrative services officer, counter caser)? Give summary @ -No Was smoking cessation discussed for >3mins.? @ -No Was critical care preformed (if so, how long)? @ -No Were there social determinants of health that impacted care today? How? (Homelessness, low income, unemployed, alcoholism, drug addiction, transportation, low edu. Level, literacy, decrease access to med. care, [facility], rehab)? @ -No Was there de-escalation of care discussed even if they declined (Discuss DNR or withdrawal of care, Hospice)? DNR status @ -No What co-morbidities impacted this encounter? (DM, HTN, Smoking, COPD, CAD, Cancer, CVA, ARF, Chemo, Hep., AIDS, mental health diagnosis, sleep apnea, morbid obesity)? @ -None Was patient admitted / discharged? Hospital course, mention meds given and route, prescriptions, significant lab abnormalities, going to OR and other pertinent info. @ -Admit Patient care was discussed with Dr. Herman who transferred the patient from his office here for evaluation and admission. Patient arrives he is in no acute distress. Repeat labs were obtained patient is in acute liver failure acute kidney injury he has bicytopenia. CT scan without contrast was completed there is some nonspecific bowel inflammation no other abnormalities. At this time patient will be admitted with general surgery and GI on consult. Undiagnosed new problem with uncertain prognosis? @ -Yes Drug Therapy requiring intensive monitoring for toxicity (Heparin, Nitro, I nsulin, Cardizem)? @ -No Were any procedures done? @ -No Diagnosis/symptom? @ -Transaminitis, acute kidney injury, colitis, pancreatitis Acute, or Chronic, or Acute on Chronic? @ -Acute Uncomplicated (without systemic symptoms) or Complicated (systemic symptoms)? @ Complicated Side effects of treatment? @ -No Exacerbation, Progression, or Severe Exacerbation? @ -No Poses a threat to life or bodily function? How? (Chest pain, [place], [place], pneumonia, PE, COPD, DKA, ARF, appy, cholecystitis, CVA, Diverticulitis, Homicidal, Suicidal, threat to staff... and all critical care pts) @ -Unlikely - Lab Data Result diagrams: 12/09/23 16:33 12/09/23 16:33 Lab Results 12/09/23 12/09/23 12/09/23 Range/Units 16:33 16:33 16:33 WBC 3.7 L (3.8-10.6) k/uL RBC 4.35 (4.30-5.90) m/uL Hgb 14.5 (13.0-17.5) gm/dL Hct 43.9 (39.0-53.0) % MCV 100.8 H (80.0-100.0) fL MCH 33.3 (25.0-35.0) pg MCHC 33.0 (31.0-37.0) g/dL RDW 14.0 (11.5-15.5) % Plt Count 113 L (150-450) k/uL MPV 9.3 Neutrophils % (Manual) 56 % Lymphocytes % (Manual) 37 % Monocytes % (Manual) 7 % Neutrophils # (Manual) 2.07 (1.3-7.7) k/uL Lymphocytes # (Manual) 1.37 (1.0-4.8) k/uL Monocytes # (Manual) 0.26 (0-1.0) k/uL Nucleated RBCs 0 (0-0) /100 WBC Manual Slide Review Performed Macrocytosis Slight PT 11.7 (10.0-12.5) sec INR 1.1 (<1.2) APTT 25.4 (22.0-30.0) sec Sodium 139 (137-145) mmol/L Potassium 4.3 (3.5-5.1) mmol/L Chloride 107 (98-107) mmol/L Carbon Dioxide 23 (22-30) mmol/L Anion Gap 9 mmol/L BUN 21 H (9-20) mg/dL Creatinine 1.62 H (0.66-1.25) mg/dL Est GFR (CKD-EPI)AfAm 45 (>60 ml/min/1.73 sqM) Est GFR (CKD-EPI)NonAf 39 (>60 ml/min/1.73 sqM) Glucose 119 H (74-99) mg/dL Plasma Lactic Acid Chi (0.7-2.0) mmol/L Calcium 8.2 L (8.4-10.2) mg/dL Total Bilirubin 3.1 H (0.2-1.3) mg/dL AST 990 H (17-59) U/L ALT 1315 H (4-49) U/L Alkaline Phosphatase 517 H (38-126) U/L Total Protein 6.9 (6.3-8.2) g/dL Albumin 3.4 L (3.5-5.0) g/dL Amylase 142 H (30-110) U/L Lipase 953 H (23-300) U/L /09/21 Range/Units 16:33 WBC (3.8-10.6) k/uL RBC (4.30-5.90) m/uL Hgb (13.0-17.5) gm/dL Hct (39.0-53.0) % MCV (80.0-100.0) fL MCH (25.0-35.0) pg MCHC (31.0-37.0) g/dL RDW (11.5-15.5) % Plt Count (150-450) k/uL MPV Neutrophils % (Manual) % Lymphocytes % (Manual) % Monocytes % (Manual) % Neutrophils # (Manual) (1.3-7.7) k/uL Lymphocytes # (Manual) (1.0-4.8) k/uL Monocytes # (Manual) (0-1.0) k/uL Nucleated RBCs (0-0) /100 WBC Manual Slide Review Macrocytosis PT (10.0-12.5) sec INR (<1.2) APTT (22.0-30.0) sec Sodium (137-145) mmol/L Potassium (3.5-5.1) mmol/L Chloride (98-107) mmol/L Carbon Dioxide (22-30) mmol/L Anion Gap mmol/L BUN (9-20) mg/dL Creatinine (0.66-1.25) mg/dL Est GFR (CKD-EPI)AfAm (>60 ml/min/1.73 sqM) Est GFR (CKD-EPI)NonAf (>60 ml/min/1.73 sqM) Glucose (74-99) mg/dL Plasma Lactic Acid Chi 1.5 (0.7-2.0) mmol/L Calcium (8.4-10.2) mg/dL Total Bilirubin (0.2-1.3) mg/dL AST (17-59) U/L ALT (4-49) U/L Alkaline Phosphatase (38-126) U/L Total Protein (6.3-8.2) g/dL Albumin (3.5-5.0) g/dL Amylase (30-110) U/L Lipase (23-300) U/L Disposition Clinical Impression: Colitis, Pancreatitis, Transaminitis, Bicytopenia, JEANNA (acute kidney injury) Disposition: ADMITTED IP TO THIS [facility] Condition: Serious Is patient prescribed a controlled substance at d/c from ED?: No
[2023-12-09] MEDS: SODIUM CHLORIDE 0.9% 1,000 ML IV STA (16:54)
[2023-12-09 16:56] LABS: HCT 43.9 % (39.0-53.0); HGB 14.5 gm/dL (13.0-17.5); MCH 33.3 pg (25.0-35.0); MCV 100.8 fL (80.0-100.0); Macrocytosis Slight; Mean Platelet Volume 9.3; Platelet Count 113 k/uL (150-450); RBC 4.35 m/uL (4.30-5.90); WBC 3.7 k/uL (3.8-10.6)
[2023-12-09 17:03] LABS: INR 1.1 (<1.2); Partial Thromboplastin Time 25.4 sec (22.0-30.0); Prothrombin Time 11.7 sec (10.0-12.5)
[2023-12-09 17:10] LABS: Potassium 4.3 mmol/L (3.5-5.1)
[2023-12-09 17:11] LABS: African American GFR (CKD) 45 (>60 ml/min/1.73 sqM); Albumin 3.4 g/dL (3.5-5.0); Alkaline Phosphatase 517 U/L (38-126); Amylase 142 U/L (30-110); Anion Gap 9 mmol/L; Blood Urea Nitrogen 21 mg/dL (9-20); Calcium 8.2 mg/dL (8.4-10.2); Carbon Dioxide 23 mmol/L (22-30); Chloride 107 mmol/L (98-107); Glucose 119 mg/dL (74-99); Lipase 953 U/L (23-300); Non-African American GFR(CKD) 39 (>60 ml/min/1.73 sqM); Sodium 139 mmol/L (137-145); Total Bilirubin 3.1 mg/dL (0.2-1.3); Total Protein 6.9 g/dL (6.3-8.2)
[2023-12-09 17:51] LABS: Lymphocytes # (M) 1.37 k/uL (1.0-4.8); Monocytes # (M) 0.26 k/uL (0-1.0); Neutrophils # (M) 2.07 k/uL (1.3-7.7); Neutrophils % (M) 56 %; Nucleated Red Blood Cells 0 /100 WBC (0-0); Total Cells Counted 100
[2023-12-09 18:02] LABS: AST 990 U/L (17-59)
[2023-12-09 18:03] LABS: ALT 1315 U/L (4-49)
--- NOTE | 2023-12-09 18:19 | CT ---
EXAMINATION TYPE: CT abdomen pelvis wo con DATE OF EXAM: 12/09/2023 COMPARISON: 06/18/2016 HISTORY: 83-year-old male ABDOMINAL PAIN, RUQ PAIN, SOB. LIVER FAILURE CT DLP: 559.3 mGycm. Automated exposure control for dose reduction was used. TECHNIQUE: Contiguous axial scanning of the abdomen and pelvis without IV contrast. Coronal and sagit yohannes reconstructions performed. FINDINGS: The heart is borderline enlarged with trace anterior pericardial fluid. Ectatic lower descending thor acic aorta at 2.9 cm. Prominent patchy dependent atelectasis in the lower lobes. Slightly diminished attenuation of the hepatic parenchyma may reflect mild fatty infiltration. No abn ormal gallbladder distention. Adrenal glands, spleen, and pancreas within normal limits. Mild bilateral perinephric edema probably senescent change, similar to prior study. There is some mild generalized anasarca unchanged. Tracking edema and fat stranding along the right u pper quadrant retroperitoneum adjacent to the second portion of the duodenum and the ascending colon, there may be some circumferential wall thickening here of the cecum and ascending colon. Mild atherosclerotic calcifications infrarenal abdominal aorta with borderline ectasia to 2.5 cm. Normal appendix. No dilated small bowel, free fluid, or free air. Scattered mild stool. There is scattered left-sided colonic diverticulosis, greatest in the sigmoid c olon. Bladder partially distended. Prostate gland is enlarged measuring 4.5 cm wide. No abnormal fluid irena ection in the pelvis or pelvic lymphadenopathy. Bones: Moderate to advanced spondylotic changes throughout the lower lumbar spine. Degenerative grade 1 retrolistheses L1-L4 levels. IMPRESSION: 1. Retroperitoneal edema/inflammation in the right upper quadrant adjacent to a mildly thickened cec um and ascending colon. Correlate for possible nonspecific [id number] colitis. 2. Left-sided colonic diverticulosis without acute diverticulitis. 3. Prostatomegaly at 4.5 cm wide.
[2023-12-09] MEDS ORDERED: NALOXONE 0.4 MG/ML 1 ML VIAL IV PRN (18:27)
--- NOTE | 2023-12-09 20:31 | US ---
EXAMINATION TYPE: US gallbladder DATE OF EXAM: 12/09/2023 COMPARISON: CT: Today CLINICAL INDICATION: Male, 83 years old with history of transaminitis; transaminitis TECHNIQUE: Multiple sonographic images of the right upper quadrant are obtained. FINDINGS: Limited due to bowel gas and body habitus EXAM MEASUREMENTS: Liver Length: 13.8 cm Gallbladder Wall: 0.2 cm CBD: 0.5 cm Right Kidney: 10.1 x 6.4 x 5.6 cm PILLAR WORKER NOTES: Pancreas: Limited due to bowel gas Liver: Parenchyma appears coarsened, echogenic with loss of normally seen internal architecture. Gallbladder: wnl Evidence for sonographic Ramirez's sign: No CBD: wnl Right Kidney: wnl IMPRESSION: 1. Echogenic liver suggesting diffuse hepatocellular disease, which statistically most often is on t he basis of hepatic steatosis. Differential diagnosis includes artifact on the basis of body habitus. The finding does limit evaluation of the liver parenchyma. 2. Unremarkable gallbladder and biliary tree.
[2023-12-09] MEDS ORDERED: HYDROmorphone 0.5 MG/0.5 ML SYRINGE IVP PRN (22:36)
[2023-12-09] MEDS: METOPROLOL TARTRATE 25 MG TAB PO SCH (22:55)
[2023-12-10] MEDS: NON FORMULARY DRUG (Netarsudil Mesylat/Latanoprost [Rocklatan 0.02%-0.005% Eye Drp] 2.5 ML BOTH EYES SCH (08:27)
[2023-12-10] MEDS: LOSARTAN 50 MG TAB PO SCH (08:44)
[2023-12-10] MEDS: TIMOLOL 0.5% OPHTH DROPS 5 ML BTL BOTH EYES SCH (08:45)
[2023-12-10] MEDS: PILOCARPINE 1% OPHTH DROPS 15 ML BTL BOTH EYES SCH (08:45)
[2023-12-10] MEDS: BRIMONIDINE TARTRATE 0.2% DROPS 5 ML BTL BOTH EYES SCH (08:46)
[2023-12-10 10:14] LABS: HCT 37.2 % (39.0-53.0); HGB 12.3 gm/dL (13.0-17.5); MCH 33.4 pg (25.0-35.0); MCHC 33.1 g/dL (31.0-37.0); MCV 100.7 fL (80.0-100.0); Macrocytosis Slight; Platelet Count 108 k/uL (150-450); RBC 3.69 m/uL (4.30-5.90); WBC 3.5 k/uL (3.8-10.6)
[2023-12-10 10:26] LABS: AST 713 U/L (17-59); African American GFR (CKD) 49 (>60 ml/min/1.73 sqM); Albumin 2.4 g/dL (3.5-5.0); Albumin/Globulin Ratio 0.8; Alkaline Phosphatase 376 U/L (38-126); Anion Gap 3 mmol/L; Blood Urea Nitrogen 19 mg/dL (9-20); Calcium 7.6 mg/dL (8.4-10.2); Carbon Dioxide 21 mmol/L (22-30); Chloride 114 mmol/L (98-107); Globulin 2.9 g/dL; Glucose 132 mg/dL (74-99); Non-African American GFR(CKD) 43 (>60 ml/min/1.73 sqM); Potassium 4.1 mmol/L (3.5-5.1); Sodium 138 mmol/L (137-145); Total Bilirubin 2.5 mg/dL (0.2-1.3); Total Protein 5.3 g/dL (6.3-8.2)
[2023-12-10 10:38] LABS: ALT 900 U/L (4-49)
--- NOTE | 2023-12-10 12:30 | P.GSCN ---
History of Present Illness Consult date: 12/10/23 History of present illness: CHIEF COMPLAINT: Abdominal pain HISTORY OF PRESENT ILLNESS: This is a 83-year-old male who presented to hospital with complaints of right-sided abdominal pain x 3 to 4 weeks. Patient reports that he also had labs completed in the office and was found to have elevated liver enzymes and acute kidney injury. Patient had CT scan abdomen and pelvis that reported retroperitoneal edema/inflammation in the right upper quadrant adjacent to mild thickened cecum and ascending colon. Correlate for mild to moderate colitis. Left-sided diverticulosis without acute diverticulitis. Gallbladder ultrasound reported echogenic liver suggesting diffuse hepatocellular disease which is usually on the basis of hepatic steatosis. Unremarkable gallbladder and biliary tree. Patient reports that his bowel movements have been more on the softer side. He occasionally has blood when he wipes. Last colonoscopy was a year ago and he reports findings of hemorrhoids. Patient did have significant elevated liver enzymes on admission as well as elevated lipase at 953. Patient denies any alcohol use. PAST MEDICAL HISTORY: Hypertension, COVID (08/23/21) glaucoma PAST SURGICAL HISTORY: Heart Catheterization With Stent, Hernia Repair MEDICATIONS: See below ALLERGIES: See below SOCIAL HISTORY: No illicit drug use. REVIEW OF SYSTEMS: CONSTITUTIONAL: Denies fever or chills. HEENT: Denies blurred vision, vision changes, or eye pain. Denies hemoptysis CARDIOVASCULAR: Denies chest pain or pressure. RESPIRATORY: No shortness of breath. GASTROINTESTINAL: See HPI for pertinent findings HEMATOLOGIC: Denies bleeding disorders. GENITOURINARY: Denies any blood in urine or increased urinary frequency. SKIN: Denies pruitis. Denies rash. PHYSICAL EXAM: VITAL SIGNS: Reviewed GENERAL: Well-developed in no acute distress. HEENT: No sclera icterus. Extraocular movements grossly intact. Moist buccal mucosa. Head is atraumatic, normocephalic. No nasal drainage. ABDOMEN: Soft. Nondistended. Tenderness with palpation of the right side of the abdomen NEUROLOGIC: Alert and oriented. Cranial nerves II through XII grossly intact. LABORATORY DATA: WBC 3.5 Hgb 12.3 platelets 108 Sodium is 138 potassium 4.1 creatinine 1.51 Lactic acid 1.5 Total bilirubin 3.1 down to 2.5 AST 990 down to 713 ALT 1315 to 900 alk phos 517 down to 376 Lipase 953 IMAGING: CT abdomen and US as stated above ASSESSMENT: 1. Right-sided abdominal pain 2. Retroperitoneal edema/inflammation in the right upper quadrant adjacent to mild thickened cecum and ascending colon. Correlate for possible mild to moderate colitis noted on CAT scan 3. Elevated liver enzymes and bilirubin 4. Elevated lipase 5. Acute kidney injury PLAN: -Further recommendations forthcoming per surgeon -Agree with GI consult. Will await their further recommendations -Continue clear liquid diet -Continue supportive care Physician Personnel Officer note has been reviewed by physician. Signing provider agrees with the documented findings, assessment, and plan of care. Past Medical History Past Medical History: Hypertension Additional Past Medical History / Comment(s): COVID (08/23/21) glaucoma History of Any Multi-Drug Resistant Organisms: None Reported Past Surgical History: Heart Catheterization With Stent, Hernia Repair Additional Past Surgical History / Comment(s): hernia-groin, cataract, eye surgery/lens Past Anesthesia/Blood Transfusion Reactions: No Reported Reaction Date of Last Stent Placement:: 2021 Past Psychological History: No Psychological Hx Reported Smoking Status: Never smoker Past Alcohol Use History: None Reported, Rare Additional Past Alcohol Use History / Comment(s): none Past Drug Use History: None Reported - Past Family History Father Family Medical History: Myocardial Infarction (ME) Brother(s) Family Medical History: Myocardial Infarction (ME) Medications and Allergies Home Medications Medication Instructions Recorded Confirmed Type Desloratadine 5 mg PO HS 10/28/21 12/09/23 History Atorvastatin [Lipitor] 80 mg PO HS #90 tab 10/30/21 12/09/23 Rx Metoprolol Tartrate [Lopressor] 25 mg PO BID #180 tab 10/30/21 12/09/23 Rx Aspirin EC [Ecotrin Low Dose] 81 mg PO DAILY 12/09/23 12/09/23 History Brimonidine Tartrate [Alphagan P 1 drop BOTH EYES TID 12/09/23 12/09/23 History 0.2% Ophth Soln] Losartan [Cozaar] 50 mg PO DAILY 12/09/23 12/09/23 History Netarsudil Mesylat/Latanoprost 1 drop BOTH EYES DAILY 12/09/23 12/09/23 History [Rocklatan 0.02%-0.005% Eye Drp] Nitroglycerin Sl Tabs [Nitrostat] 0.4 mg SL Q5M PRN 12/09/23 12/09/23 History Pantoprazole [Protonix] 40 mg PO DAILY 12/09/23 12/09/23 History Pilocarpine 1% Ophth Soln [Isopto 1 drop BOTH EYES QID 12/09/23 12/09/23 History Carpine 1%] Timolol 0.5% Ophth Soln [Timoptic 1 drop BOTH EYES BID 12/09/23 12/09/23 History 0.5% Ophth Soln] Allergies Allergy/AdvReac Type Severity Reaction Status Date / Time LYNDA Inhibitors Allergy Anaphylaxis Verified 12/09/23 21:42 Sulfa (Sulfonamide Allergy Rash/Hives Verified 12/09/23 21:42 Antibiotics) Surgical - Exam Vital Signs Temp Pulse Resp BP Pulse Ox 97.4 F L 60 16 186/88 96 12/09/23 16:04 12/09/23 16:04 12/09/23 16:04 12/09/23 16:04 12/09/23 16:04 Results - Labs 12/10/23 09:55 12/10/23 09:55 Abnormal Lab Results - Last 24 Hours (Table) 12/09/23 12/09/23 12/10/23 Range/Units 16:33 16:33 09:55 WBC 3.7 L 3.5 L (3.8-10.6) k/uL RBC 3.69 L (4.30-5.90) m/uL Hgb 12.3 L (13.0-17.5) gm/dL Hct 37.2 L (39.0-53.0) % MCV 100.8 H 100.7 H (80.0-100.0) fL Plt Count 113 L 108 L (150-450) k/uL Chloride (98-107) mmol/L Carbon Dioxide (22-30) mmol/L BUN 21 H (9-20) mg/dL Creatinine 1.62 H (0.66-1.25) mg/dL Glucose 119 H (74-99) mg/dL Calcium 8.2 L (8.4-10.2) mg/dL Total Bilirubin 3.1 H (0.2-1.3) mg/dL AST 990 H (17-59) U/L ALT 1315 H (4-49) U/L Alkaline Phosphatase 517 H (38-126) U/L Total Protein (6.3-8.2) g/dL Albumin 3.4 L (3.5-5.0) g/dL Amylase 142 H (30-110) U/L Lipase 953 H (23-300) U/L 12/10/23 Range/Units 09:55 WBC (3.8-10.6) k/uL RBC (4.30-5.90) m/uL Hgb (13.0-17.5) gm/dL Hct (39.0-53.0) % MCV (80.0-100.0) fL Plt Count (150-450) k/uL Chloride 114 H (98-107) mmol/L Carbon Dioxide 21 L (22-30) mmol/L BUN (9-20) mg/dL Creatinine 1.51 H (0.66-1.25) mg/dL Glucose 132 H (74-99) mg/dL Calcium 7.6 L (8.4-10.2) mg/dL Total Bilirubin 2.5 H (0.2-1.3) mg/dL AST 713 H (17-59) U/L ALT 900 H (4-49) U/L Alkaline Phosphatase 376 H (38-126) U/L Total Protein 5.3 L (6.3-8.2) g/dL Albumin 2.4 L (3.5-5.0) g/dL Amylase (30-110) U/L Lipase (23-300) U/L Diabetes panel 12/09/23 12/10/23 Range/Units 16:33 09:55 Sodium 139 138 (137-145) mmol/L Potassium 4.3 4.1 (3.5-5.1) mmol/L Chloride 107 114 H (98-107) mmol/L Carbon Dioxide 23 21 L (22-30) mmol/L BUN 21 H 19 (9-20) mg/dL Creatinine 1.62 H 1.51 H (0.66-1.25) mg/dL Glucose 119 H 132 H (74-99) mg/dL Calcium 8.2 L 7.6 L (8.4-10.2) mg/dL AST 990 H 713 H (17-59) U/L ALT 1315 H 900 H (4-49) U/L Alkaline Phosphatase 517 H 376 H (38-126) U/L Total Protein 6.9 5.3 L (6.3-8.2) g/dL Albumin 3.4 L 2.4 L (3.5-5.0) g/dL Calcium panel 12/09/23 12/10/23 Range/Units 16:33 09:55 Calcium 8.2 L 7.6 L (8.4-10.2) mg/dL Albumin 3.4 L 2.4 L (3.5-5.0) g/dL Pituitary panel 12/09/23 12/10/23 Range/Units 16:33 09:55 Sodium 139 138 (137-145) mmol/L Potassium 4.3 4.1 (3.5-5.1) mmol/L Chloride 107 114 H (98-107) mmol/L Carbon Dioxide 23 21 L (22-30) mmol/L BUN 21 H 19 (9-20) mg/dL Creatinine 1.62 H 1.51 H (0.66-1.25) mg/dL Glucose 119 H 132 H (74-99) mg/dL Calcium 8.2 L 7.6 L (8.4-10.2) mg/dL Adrenal panel 12/09/23 12/10/23 Range/Units 16:33 09:55 Sodium 139 138 (137-145) mmol/L Potassium 4.3 4.1 (3.5-5.1) mmol/L Chloride 107 114 H (98-107) mmol/L Carbon Dioxide 23 21 L (22-30) mmol/L BUN 21 H 19 (9-20) mg/dL Creatinine 1.62 H 1.51 H (0.66-1.25) mg/dL Glucose 119 H 132 H (74-99) mg/dL Calcium 8.2 L 7.6 L (8.4-10.2) mg/dL Total Bilirubin 3.1 H 2.5 H (0.2-1.3) mg/dL AST 990 H 713 H (17-59) U/L ALT 1315 H 900 H (4-49) U/L Alkaline Phosphatase 517 H 376 H (38-126) U/L Total Protein 6.9 5.3 L (6.3-8.2) g/dL Albumin 3.4 L 2.4 L (3.5-5.0) g/dL
--- NOTE | 2023-12-10 12:48 | P.CONS ---
History of Present Illness - Reason for Consult Consult date: 12/10/23 Transaminitis Requesting physician: Sydney Ibarra - Chief Complaint Abdominal pain - History of Present Illness This is a pleasant 83-year-old male who presented to the emergency department with complaints of abdominal pain. States pain has been ongoing for the last 3 weeks duration. He has a past medical history including hypertension, coronary artery disease status post heart cath and stent and glaucoma. Patient states abdominal pain has been mostly in the mid to lower right abdomen. States bowel movements have been daily usually 1 they have been very soft, but not diarrhea. He denies any nausea or vomiting, no fevers or chills. He had a colonoscopy ab out a year ago done at [facility] which he states he had a couple polyps status post polypectomy. He was noted to have elevated LFTs as well as amylase and lipase on admission. He had a CT of the abdomen pelvis with some concerns for possible colitis. He also underwent abdominal ultrasound that reported echogenic liver, no CBD dilation. He denies any history of liver disease. Denies any history of alcoholism, obesity and no new medications. Admitting labs: WBC 3.7 hemoglobin 14.5 hematocrit 43 platelet count 113,000 INR 1.1 sodium 139 potassium 4.3 BUN 21 creatinine 1.6 total bilirubin 3.1 AST 990 ALT 1315 alkaline phosphatase 517 amylase 142 lipase 953 Review of Systems REVIEW OF SYSTEMS: CARDIOPULMONARY: No chest pain or shortness of breath. Gastrointestinal: Right upper quadrant, right lower quadrant pain. No nausea or vomiting. No hematemesis, coffee-ground emesis. Soft stool, daily. Denies any blood in his stool but states that he has noted some bright red blood occasionally on his tissue paper. GENITOURINARY: No dysuria or hematuria. MUSCULOSKELETAL: Reports normal range of motion. SKIN: No rashes. No jaundice. ENDOCRINE: No chills, fevers. No excessive weight gain or loss. No polydipsia or polyuria. PSYCHIATRIC: Unremarkable. NEUROLOGY: No change in mental status. Denies dizziness, headache. ENT: Vision unremarkable. CONSTITUTIONAL: No recent weight loss. No fever, chills, night sweats. Past Medical History Past Medical History: Hypertension Additional Past Medical History / Comment(s): COVID (08/23/21) glaucoma History of Any Multi-Drug Resistant Organisms: None Reported Past Surgical History: Heart Catheterization With Stent, Hernia Repair Additional Past Surgical History / Comment(s): hernia-groin, cataract, eye surgery/lens Past Anesthesia/Blood Transfusion Reactions: No Reported Reaction Date of Last Stent Placement:: 2021 Past Psychological History: No Psychological Hx Reported Smoking Status: Never smoker Past Alcohol Use History: None Reported, Rare Additional Past Alcohol Use History / Comment(s): none Past Drug Use History: None Reported - Past Family History Father Family Medical History: Myocardial Infarction (OR) Brother(s) Family Medical History: Myocardial Infarction (OR) Medications and Allergies Home Medications Medication Instructions Recorded Confirmed Type Desloratadine 5 mg PO HS 10/28/21 12/09/23 History Atorvastatin [Lipitor] 80 mg PO HS #90 tab 10/30/21 12/09/23 Rx Metoprolol Tartrate [Lopressor] 25 mg PO BID #180 tab 10/30/21 12/09/23 Rx Aspirin EC [Ecotrin Low Dose] 81 mg PO DAILY 12/09/23 12/09/23 History Brimonidine Tartrate [Alphagan P 1 drop BOTH EYES TID 12/09/23 12/09/23 History 0.2% Ophth Soln] Losartan [Cozaar] 50 mg PO DAILY 12/09/23 12/09/23 History Netarsudil Mesylat/Latanoprost 1 drop BOTH EYES DAILY 12/09/23 12/09/23 History [Rocklatan 0.02%-0.005% Eye Drp] Nitroglycerin Sl Tabs [Nitrostat] 0.4 mg SL Q5M PRN 12/09/23 12/09/23 History Pantoprazole [Protonix] 40 mg PO DAILY 12/09/23 12/09/23 History Pilocarpine 1% Ophth Soln [Isopto 1 drop BOTH EYES QID 12/09/23 12/09/23 History Carpine 1%] Timolol 0.5% Ophth Soln [Timoptic 1 drop BOTH EYES BID 12/09/23 12/09/23 History 0.5% Ophth Soln] Allergies Allergy/AdvReac Type Severity Reaction Status Date / Time LYNDA Inhibitors Allergy Anaphylaxis Verified 12/09/23 21:42 Sulfa (Sulfonamide Allergy Rash/Hives Verified 12/09/23 21:42 Antibiotics) Physical Exam Vitals: Vital Signs Temp Pulse Pulse Resp BP BP Pulse Ox 12/10/23 07:00 97.9 F 57 L 16 133/71 96 12/10/23 01:14 98.2 F 69 17 151/74 95 12/09/23 21:38 98.1 F 58 L 20 187/79 97 12/09/23 20:33 64 16 162/86 97 12/09/23 18:30 67 18 173/84 98 12/09/23 17:00 62 22 163/91 98 12/09/23 16:04 97.4 F L 60 16 186/88 96 Intake and Output 12/09/23 12/10/23 12/10/23 22:59 06:59 14:59 Other: Voiding Method Toilet Toilet # Voids 1 Weight 79.379 kg General appearance: The patient is alert, oriented, appears in no acute distress. HET: Head is normocephalic and atraumatic. Conjunctiva pink. Sclera anicteric. Neck: Supple without lymphadenopathy. Trachea midline. Heart: Regular. Lungs: Equal expansion, normal respiratory effort. Abdomen: Soft, right upper quadrant and right lower quadrant tenderness to palpation, no hepatomegaly noted. Nondistended with bowel sounds. No guarding or rigidity. Skin: No rashes. No jaundice. Extremities: Normal skin color and turgor. No pedal edema. Neurological: No focal deficits. Alert and oriented x3. Results CBC & Chem 7: 12/10/23 09:55 12/10/23 09:55 Labs: Abnormal Lab Results - Last 24 Hours (Table) 12/09/23 12/09/23 Range/Units 16:33 16:33 WBC 3.7 L (3.8-10.6) k/uL MCV 100.8 H (80.0-100.0) fL Plt Count 113 L (150-450) k/uL BUN 21 H (9-20) mg/dL Creatinine 1.62 H (0.66-1.25) mg/dL Glucose 119 H (74-99) mg/dL Calcium 8.2 L (8.4-10.2) mg/dL Total Bilirubin 3.1 H (0.2-1.3) mg/dL AST 990 H (17-59) U/L ALT 1315 H (4-49) U/L Alkaline Phosphatase 517 H (38-126) U/L Albumin 3.4 L (3.5-5.0) g/dL Amylase 142 H (30-110) U/L Lipase 953 H (23-300) U/L Comments: CT abdomen pelvis without contrast: Retroperitoneal edema/inflammation in the right upper quadrant adjacent to a mildly thickened cecum and ascending colon. Correlate for possible nonspecific mild to moderate colitis. Left-sided colonic diverticulosis without acute diverticulitis. Prostamegaly at 4.5 cm wide Gallbladder ultrasound: Echogenic liver suggesting diffuse hepatocellular disease, which statistically most often is on the basis of hepatic steatosis. Differential diagnosis includes artifact on the basis of body habitus. Finding does limit evaluation of the liver parenchyma. Unremarkable gallbladder and b iliary tree. Assessment and Plan (1) Transaminitis Narrative/Plan: 83-year-old presenting for abdominal pain mostly in the right and lower abdomin al quadrants associated with soft stools over the last 3 weeks duration. Patient noted to have elevated LFTs and elevated pancreatic enzymes consistent with acute pancreatitis. CT abdomen and pelvis also showing inflammation near the cecum with possible etiology of mild to moderate colitis. Patient denies any history of liver disease, no history of hepatitis, no alcoholism, recent medications. Unclear etiology at this time, need to consider possible gallstone pancreatitis as well. Liver enzymes are trending down, will continue to follow. CA 19-9, MRCP ordered. Further recommendations forthcoming. Current Visit: Yes Status: Acute Code(s): R74.01 - ELEVATION OF LEVELS OF LIVER TRANSAMINASE LEVELS SNOMED Code(s): 713855806 (2) Pancreatitis Current Visit: Yes Status: Acute Code(s): K85.90 - ACUTE PANCREATITIS WITHOUT NECROSIS OR INFECTION, UNSP SNOMED Code(s): 08557181 (3) Abdominal pain Current Visit: Yes Status: Acute Code(s): R10.9 - UNSPECIFIED ABDOMINAL PAIN SNOMED Code(s): 13056859 (4) Colitis Current Visit: Yes Status: Acute Code(s): K52.9 - NONINFECTIVE GASTROENTERITIS AND COLITIS, UNSPECIFIED SNOMED Code(s): 10429439 (5) JEANNA (acute kidney injury) Current Visit: Yes Status: Acute Code(s): N17.9 - ACUTE KIDNEY FAILURE, UNSPECIFIED SNOMED Code(s): 91549681 Plan: 1. Continue symptomatic and supportive care 2. Daily CBC, CMP, CA 19-9 ordered 3. Avoid hepatotoxic medications 4. Await further recommendations from general surgery 5. MRCP ordered 6. Further recommendations forthcoming per gastroenterology Thank you for this consultation, we will continue to follow. Dr. Cole Rutherford I agree with the dictator's note, documented as a scribe by Ronda Lucia.
[2023-12-10] MEDS ORDERED: NITROGLYCERIN SL TABS 0.4 MG TAB SUBLINGUAL PRN (13:13)
[2023-12-10] MEDS: PANTOPRAZOLE 40 MG/10 ML VIAL IVP SCH (15:30)
[2023-12-10 17:18] LABS: Alpha Fetoprotein, Tumor Mkr <3.00 ng/mL (0.00-7.90); Hepatitis A Antibody IgM Nonreactive; Hepatitis B Core IgM Nonreactive; Hepatitis B Surface Antigen Nonreactive; Hepatitis C IgG Antibody Nonreactive
--- NOTE | 2023-12-10 17:33 | P.HPIM ---
History of Present Illness H&P Date: 12/10/23 Chief Complaint: Right upper quadrant abdominal pain, abnormal labs This an 83-year-old gentleman with past medical history of CAD, [place], glaucoma, hypertension, COVID 08/19, rare alcohol use , hemorrhoids and multiple other medical issues directed by his PCP to come to the ER secondary to right upper quadrant abdominal pain x 1 month, critical lab abnormalities-acute liver failure/acute renal failure and elevated lipase. Reports ongoing right side abdominal pain exacerbated by food consumption. Denies nausea ,vomiting. Positive soft stools, not diarrhea. Denies weight loss. Denies prior history of liver disease. Rare alcohol use. Denies recent medication changes. Reports normal colonoscopy 1 year ago. On admission :Total bilirubin 3.1 decreased to 2.5, AST 990 decreased to 713, ALT 1315 decreased to 900, alk phos 517 decreased to 376. Lipase 953, creatinine 1.51. Afebrile ,WBC 3.5, Lactic acid 1.5. Hgb 12.3 platelets 108. Abdomen/pelvis CT reported retroperitoneal edema/inflammation in the right upper quadrant adjacent to mildly thickened cecum and ascending colon, correlate for possible nonspecific mild to moderate colitis, left-sided colonic diverticulosis without acute diverticulitis prostatomegaly at 4.5 cm. Gallbladder ultrasound reported echogenic liver suggesting diffuse hepatocellular disease, hepatic steatosis, unremarkable gallbladder and biliary tree. Review of Systems ROS Statement: Those systems with pertinent positive or pertinent negative responses have been documented in the HPI. ROS Other: All systems not noted in ROS Statement are negative. Past Medical History Past Medical History: Hypertension Additional Past Medical History / Comment(s): COVID (08/23/21) glaucoma History of Any Multi-Drug Resistant Organisms: None Reported Past Surgical History: Heart Catheterization With Stent, Hernia Repair Additional Past Surgical History / Comment(s): hernia-groin, cataract, eye surgery/lens Past Anesthesia/Blood Transfusion Reactions: No Reported Reaction Date of Last Stent Placement:: 2021 Past Psychological History: No Psychological Hx Reported Smoking Status: Never smoker Past Alcohol Use History: None Reported, Rare Additional Past Alcohol Use History / Comment(s): none Past Drug Use History: None Reported - Past Family History Father Family Medical History: Myocardial Infarction ([place]) Brother(s) Family Medical History: Myocardial Infarction ([place]) Medications and Allergies Home Medications Medication Instructions Recorded Confirmed Type Desloratadine 5 mg PO HS 10/28/21 12/09/23 History Atorvastatin [Lipitor] 80 mg PO HS #90 tab 10/30/21 12/09/23 Rx Metoprolol Tartrate [Lopressor] 25 mg PO BID #180 tab 10/30/21 12/09/23 Rx Aspirin EC [Ecotrin Low Dose] 81 mg PO DAILY 12/09/23 12/09/23 History Brimonidine Tartrate [Alphagan P 1 drop BOTH EYES TID 12/09/23 12/09/23 History 0.2% Ophth Soln] Losartan [Cozaar] 50 mg PO DAILY 12/09/23 12/09/23 History Netarsudil Mesylat/Latanoprost 1 drop BOTH EYES DAILY 12/09/23 12/09/23 History [Rocklatan 0.02%-0.005% Eye Drp] Nitroglycerin Sl Tabs [Nitrostat] 0.4 mg SL Q5M PRN 12/09/23 12/09/23 History Pantoprazole [Protonix] 40 mg PO DAILY 12/09/23 12/09/23 History Pilocarpine 1% Ophth Soln [Isopto 1 drop BOTH EYES QID 12/09/23 12/09/23 History Carpine 1%] Timolol 0.5% Ophth Soln [Timoptic 1 drop BOTH EYES BID 12/09/23 12/09/23 History 0.5% Ophth Soln] Allergies Allergy/AdvReac Type Severity Reaction Status Date / Time LYNDA Inhibitors Allergy Anaphylaxis Verified 12/09/23 21:42 Sulfa (Sulfonamide Allergy Rash/Hives Verified 12/09/23 21:42 Antibiotics) Physical Exam Vitals: Vital Signs Temp Pulse Pulse Resp BP BP Pulse Ox 12/10/23 10:54 98.1 F 58 L 20 146/73 12/10/23 07:00 97.9 F 57 L 16 133/71 96 12/10/23 01:14 98.2 F 69 17 151/74 95 12/09/23 21:38 98.1 F 58 L 20 187/79 97 12/09/23 20:33 64 16 162/86 97 12/09/23 18:30 67 18 173/84 98 12/09/23 17:00 62 22 163/91 98 12/09/23 16:04 97.4 F L 60 16 186/88 96 Intake and Output 12/09/23 12/10/23 12/10/23 22:59 06:59 14:59 Other: Voiding Method Toilet Toilet # Voids 1 Weight 79.379 kg PHYSICAL EXAM: VITAL SIGNS: [As above] GENERAL: Pleasant elderly gentleman , sitting up in bed ,alert and oriented x 3, no acute distress HEENT: Normocephalic, conjunctivae normal. eyes normal. NECK: Supple, no JVD. No thyroid enlargement. No LNs CARDIOVASCULAR: S1, S2 regular.. No murmur RESPIRATION: Unlabored, equal air entry .breath sounds diminished in the bases. No rhonchi or crackles. No bronchial breathing. ABDOMEN: Soft, nondistended right upper and lower quadrant tenderness. No guarding. No hepatomegaly, positive bowel sounds. LEGS: No edema. no swelling PSYCHIATRY: Alert and oriented X3, mood and affect normal. NERVOUS SYSTEM: Cranial N 2-12 grossly normal. Moves all 4 limbs. No focal deficits. Strength and sensation grossly intact.. Skin: Warm and dry, no rash. Results CBC & Chem 7: 12/10/23 09:55 12/10/23 09:55 Labs: Abnormal Lab Results - Last 24 Hours (Table) 12/09/23 12/09/23 12/10/23 Range/Units 16:33 16:33 09:55 WBC 3.7 L 3.5 L (3.8-10.6) k/uL RBC 3.69 L (4.30-5.90) m/uL Hgb 12.3 L (13.0-17.5) gm/dL Hct 37.2 L (39.0-53.0) % MCV 100.8 H 100.7 H (80.0-100.0) fL Plt Count 113 L 108 L (150-450) k/uL Chloride (98-107) mmol/L Carbon Dioxide (22-30) mmol/L BUN 21 H (9-20) mg/dL Creatinine 1.62 H (0.66-1.25) mg/dL Glucose 119 H (74-99) mg/dL Calcium 8.2 L (8.4-10.2) mg/dL Total Bilirubin 3.1 H (0.2-1.3) mg/dL AST 990 H (17-59) U/L ALT 1315 H (4-49) U/L Alkaline Phosphatase 517 H (38-126) U/L Total Protein (6.3-8.2) g/dL Albumin 3.4 L (3.5-5.0) g/dL Amylase 142 H (30-110) U/L Lipase 953 H (23-300) U/L 12/10/23 Range/Units 09:55 WBC (3.8-10.6) k/uL RBC (4.30-5.90) m/uL Hgb (13.0-17.5) gm/dL Hct (39.0-53.0) % MCV (80.0-100.0) fL Plt Count (150-450) k/uL Chloride 114 H (98-107) mmol/L Carbon Dioxide 21 L (22-30) mmol/L BUN (9-20) mg/dL Creatinine 1.51 H (0.66-1.25) mg/dL Glucose 132 H (74-99) mg/dL Calcium 7.6 L (8.4-10.2) mg/dL Total Bilirubin 2.5 H (0.2-1.3) mg/dL AST 713 H (17-59) U/L ALT 900 H (4-49) U/L Alkaline Phosphatase 376 H (38-126) U/L Total Protein 5.3 L (6.3-8.2) g/dL Albumin 2.4 L (3.5-5.0) g/dL Amylase (30-110) U/L Lipase (23-300) U/L Thrombosis Risk Factor Assmnt - Choose All That Apply Each Risk Factor Represents 3 Points: Age 75 years or older Thrombosis Risk Factor Assessment Total Risk Factor Score: 3 Thrombosis Risk Factor Assessment Level: Moderate Risk Assessment and Plan Assessment: Abdominal pain , right-sided accompanied by transaminitis, pancreatitis, co litis, Pancytopenia, etiology unclear Acute renal failure CAD,NSTEMI, stenting of LAD ALLERGY, anaphylactic to LYNDA inhibitors Hypertension Hyperlipidemia Glaucoma Plan: Continue on current medication regimen ,monitoring and symptomatic treatment. Avoiding hepatotoxic and nephrotoxic medications. Close monitoring of LFTs, lipase and renal function with repeat labs ordered for a.m. hepatitis panel pending. IV fluid hydration, GI and general surgery consults in place with recommendations pending. Pain management. Evaluated by GI, MRCP and Ca19-9 ordered. The impression and plan of care has been dictated as directed. : I performed a history and examination of this patient, discussed the same with the dictator. I agree with the dictator's note ,documented as a scribe. Any additional findings or plans will be noted.
[2023-12-10] MEDS: LORATADINE 10 MG TAB PO SCH (20:46)
[2023-12-11] MEDS ORDERED: bisacodyL 10 MG SUPP RECTAL PRN (09:54)
[2023-12-11 11:27] LABS: Basophils # (A) 0.05 X 10*3/uL (0.00-0.10); Basophils % (A) 1.5 %; Eosinophils # (A) 0.05 X 10*3/uL (0.04-0.35); Eosinophils % (A) 1.5 %; HGB 11.7 g/dL (13.0-17.0); Lymphocytes # (A) 1.02 X 10*3/uL (0.90-5.00); Lymphocytes % (A) 29.7 %; MCH 31.7 pg (27.0-32.0); MCHC 33.4 g/dL (32.0-37.0); MCV 94.9 FL (80.0-97.0); Mean Platelet Volume 12.1 FL (9.5-12.2); Monocytes # (A) 0.74 X 10*3/uL (0.20-1.00); Monocytes % (A) 21.6 %; NRBC Per 100 WBC 0 X 10*3/uL (0.00-0.01); Neutrophils # (A) 1.56 X 10*3/uL (1.80-7.70); Neutrophils % (A) 45.4 %; Platelet Count 112 X 10*3/uL (140-440); RBC 3.69 X 10*6/uL (4.40-5.60); RDW 15.2 % (11.5-14.5); WBC 3.43 X 10*3/uL (4.50-10.00)
--- NOTE | 2023-12-11 11:35 | P.PN ---
Subjective Progress Note Date: 12/11/23 CHIEF COMPLAINT: abdominal pain HISTORY OF PRESENT ILLNESS: Patient with right-sided abdominal pain elevated liver enzymes as well as elevated CA 19-9. Patient scheduled for an MRCP today. Followed by GI service. Hepatitis panel negative. Patient reports his right- sided pain is the same. Denies any nausea or vomiting. Afebrile. WBC 3.4 Hgb 11.7 platelets 112 LFTs pending for today PHYSICAL EXAM: VITAL SIGNS: Reviewed. GENERAL: Well-developed in no acute distress. ABDOMEN: Soft. Nondistended. Nontender. NEUROLOGIC: Alert and oriented. Cranial nerves II through XII grossly intact. ASSESSMENT: 1. Right-sided abdominal pain 2. Possible colitis. Retroperitoneal edema/inflammation in the right upper quadrant adjacent to mild thickened cecum and ascending colon. Correlate for possible colitis noted on CT 3. Elevated liver enzymes and bilirubin 4. Elevated lipase. Elevated CA 19-9 5. Acute kidney injury PLAN: -Follow-up on MRCP results -Await further recommendations per GI service -Continue to monitor labs -Continue supportive care Physician Acrobatic Rigger note has been reviewed by physician. Signing provider agrees with the documented findings, assessment, and plan of care. I have personally seen and examined the patient, reviewed the H[employer]G VENDER /PAs history, exam and MDM and agree with the assessment and plan as written. Based on total visit time, I have performed more than 50% of the visit. As above: Patient went for MRCP today. No evidence of biliary obstruction on that study. No definite gallstones described however a portion of the report seems to have been cut off. Will review with radiology further. Resume liquid diet. Trend labs which are improving. Objective - Vital Signs Vital signs: Vital Signs Temp 98.0 F 12/11/23 07:30 Pulse 56 L 12/11/23 08:49 Resp 17 12/11/23 08:49 BP 130/61 12/11/23 07:30 Pulse Ox 94 L 12/11/23 07:30 FiO2 Intake & Output 12/10/23 12/11/23 12/11/23 18:59 06:59 18:59 Other: Voiding Method Toilet Toilet # Voids 2 1 - Labs CBC & Chem 7: 12/11/23 06:01 12/11/23 06:01 Labs: Abnormal Lab Results - Last 24 Hours (Table) 12/09/23 12/10/23 Range/Units 16:33 17:25 Lipase 673 H (23-300) U/L CA 19-9 Antigen 76.7 H (0.0-34.9) U/mL
[2023-12-11 11:53] LABS: BUN/Creat Ratio 9.19 Ratio (12.00-20.00); Blood Urea Nitrogen 14.7 mg/dL (9.0-27.0); Carbon Dioxide 24.2 mmol/L (21.6-31.8); Chloride 110 mmol/L (96-109); Glucose 128 mg/dL (70-110); Lipase 181 U/L (14-60); Potassium 4.2 mmol/L (3.5-5.5); Sodium 141 mmol/L (135-145)
[2023-12-11 12:05] LABS: ALT 834 U/L (10-49)
[2023-12-11 13:09] LABS: AST 473 U/L (14-35); Albumin 2.7 g/dL (3.8-4.9); Albumin/Globulin Ratio 1.23 Ratio (1.60-3.17); Alkaline Phosphatase 363 U/L (41-126); Calcium 7.7 mg/dL (8.7-10.3); Globulin 2.2 g/dL (1.6-3.3); Total Bilirubin 1.7 mg/dL (0.3-1.2); Total Protein 4.9 g/dL (6.2-8.2)
--- NOTE | 2023-12-11 13:23 | P.PN ---
Subjective Progress Note Date: 12/11/23 H&P Date: 12/10/23 Chief Complaint: Right upper quadrant abdominal pain, abnormal labs This an 83-year-old gentleman with past medical history of CAD, [place], glaucoma, hypertension, COVID 08/19, rare alcohol use , hemorrhoids and multiple other medical issues directed by his PCP to come to the ER secondary to right upper quadrant abdominal pain x 1 month, critical lab abnormalities-acute liver failure/acute renal failure and elevated lipase. Reports ongoing right side abdominal pain exacerbated by food consumption. Denies nausea ,vomiting. Positive soft stools, not diarrhea. Denies weight loss. Denies prior history of liver disease. Rare alcohol use. Denies recent medication changes. Reports normal colonoscopy 1 year ago. On admission :Total bilirubin 3.1 decreased to 2.5, AST 990 decreased to 713, ALT 1315 decreased to 900, alk phos 517 decreased to 376. Lipase 953, creatinine 1.51. Afebrile ,WBC 3.5, Lactic acid 1.5. Hgb 12.3 platelets 108. Abdomen/pelvis CT reported retroperitoneal edema/inflammation in the right upper quadrant adjacent to mildly thickened cecum and ascending colon, correlate for possible nonspecific mild to moderate colitis, left-sided colonic diverticulosis without acute diverticulitis prostatomegaly at 4.5 cm. Gallbladder ultrasound reported echogenic liver suggesting diffuse hepatocellular disease, hepatic steatosis, unremarkable gallbladder and biliary tree. 12/11/2023 NPO, scheduled for MRCP today. Hepatitis panel negative. CA 19-9 elevated 76.7. Right-sided pain unchanged. Denies nausea, vomiting.afebrile, normal WBC. Hemoglobin 11.7, platelets 112. CMP pending. Objective - Vital Signs Vital signs: Vital Signs Temp 98.0 F 12/11/23 07:30 Pulse 56 L 12/11/23 08:49 Resp 17 12/11/23 08:49 BP 130/61 12/11/23 07:30 Pulse Ox 94 L 12/11/23 07:30 FiO2 Intake & Output 12/10/23 12/11/23 12/11/23 18:59 06:59 18:59 Other: Voiding Method Toilet Toilet # Voids 2 1 - Exam PHYSICAL EXAM: VITAL SIGNS: [As above] GENERAL: Alert and oriented x 3, sitting up in bed ,alert and oriented x 3, no acute distress HEENT: Normocephalic, conjunctivae normal. eyes normal. NECK: Supple, no JVD. No thyroid enlargement. No LNs CARDIOVASCULAR: S1, S2 regular. No murmur RESPIRATION: Unlabored, equal air entry .breath sounds diminished in the bases. ABDOMEN: Soft, nondistended ,right upper and lower quadrant tenderness. No guarding. Positive bowel sounds LEGS: No edema. no swelling NERVOUS SYSTEM: Cranial N 2-12 grossly normal. No focal deficits. Skin: Warm and dry, no rash. - Labs CBC & Chem 7: 12/11/23 06:01 12/11/23 06:01 Labs: Abnormal Lab Results - Last 24 Hours (Table) 12/09/23 12/10/23 12/11/23 Range/Units 16:33 17:25 06:01 WBC (4.50-10.00) X 10*3/uL RBC (4.40-5.60) X 10*6/uL Hgb (13.0-17.0) g/dL Hct (39.6-50.0) % RDW (11.5-14.5) % Plt Count (140-440) X 10*3/uL Neutrophils # (1.80-7.70) X 10*3/uL Chloride 110 H (96-109) mmol/L Creatinine 1.6 H (0.6-1.5) mg/dL Est GFR (CKD-EPI) 43 L (>=60) BUN/Creatinine Ratio 9.19 L (12.00-20.00) Ratio Glucose 128 H (70-110) mg/dL ALT 834 H (10-49) U/L Lipase 673 H 181 H (23-300) U/L CA 19-9 Antigen 76.7 H (0.0-34.9) U/mL 12/11/23 Range/Units 06:01 WBC 3.43 L (4.50-10.00) X 10*3/uL RBC 3.69 L (4.40-5.60) X 10*6/uL Hgb 11.7 L (13.0-17.0) g/dL Hct 35.0 L (39.6-50.0) % RDW 15.2 H (11.5-14.5) % Plt Count 112 L (140-440) X 10*3/uL Neutrophils # 1.56 L (1.80-7.70) X 10*3/uL Chloride (96-109) mmol/L Creatinine (0.6-1.5) mg/dL Est GFR (CKD-EPI) (>=60) BUN/Creatinine Ratio (12.00-20.00) Ratio Glucose (70-110) mg/dL ALT (10-49) U/L Lipase (23-300) U/L CA 19-9 Antigen (0.0-34.9) U/mL Assessment and Plan Assessment: Abdominal pain , right-sided accompanied by transaminitis, pancreatitis, colitis, Pancytopenia, etiology unclear. MRCP pending, elevated CA 19-9. Acute renal failure CAD,NSTEMI, stenting of LAD ALLERGY, anaphylactic to LYNDA inhibitors Hypertension Hyperlipidemia Glaucoma Plan: Continue on current medication regimen ,monitoring and symptomatic treatment. N.P.O., MRCP pending . Continue avoiding hepatotoxic and nephrotoxic medications. Close monitoring of LFTs, renal function, repeat labs ordered for a.m. Pain management. The impression and plan of care has been dictated as directed. : I performed a history and examination of this patient, discussed the same with the dictator. I agree with the dictator's note ,documented as a scribe. Any additional findings or plans will be noted.
--- NOTE | 2023-12-11 15:03 | MR ---
EXAMINATION TYPE: MR MRCP DATE OF EXAM: 12/11/2023 2:16 PM CLINICAL INDICATION:Male, 83 years old with history of Transaminitis, abdominal pain; PHH, Abdomen pa in COMPARISON: TECHNIQUE: Multi planar, T2-weighted imaging with and without fat saturation and chemical shift imag ing was performed of the abdomen. Then, heavily T2 weighted imaging (half-Fourier acquisition single- shot turbo spin-echo) was utilized in order to study the biliary system. Maximum intensity projectio n images were reconstructed from the original data of the biliary tree. 3D images were created on [employer] work station. No Gadolinium given. FINDINGS: Lower Thorax: No evidence for acute process. Trace high T2 signal in the bilateral pleural spaces. He art is mildly enlarged for size. MRCP: * The intrahepatic ducts have a normal appearance. * The common bile duct at the level of the pancreatic head measures 3 mm in size. * The common hepatic duct measures 3 mm in size. * The pancreatic duct is normal. * The gallbladder demonstrates circumferential wall thickening but is contracted there is mild peric holecystic fluid noted. Gallbladder Abdomen: Liver: Unremarkable. Pancreas: Unremarkable. Spleen: Unremarkable. Adrenal glands: Unremarkable. Kidneys: Unremarkable. Stomach and Bowel: Unremarkable as visualized. Peritoneum: No evidence of pneumoperitoneum or free fluid. Vasculature: Unremarkable. No aortic aneurysm. Musculoskeletal: The osseous structures appear intact. Lymph Nodes: No gross evidence for lymphadenopathy. Abdominal wall: Unremarkable. IMPRESSION: 1. Mildly contracted gallbladder with pericholecystic fluid. Correlate for signs and symptoms of acu te cholecystitis. 2. No evidence to suggest ductal stricture, choledocholithiasis, or biliary ductal dilatation. 3. Trace bilateral pleural effusions, right greater than left.
[2023-12-11] MEDS: DOCUSATE 100 MG CAP PO SCH (21:12)
[2023-12-12 08:51] LABS: HCT 38.2 % (39.0-53.0); HGB 12.5 gm/dL (13.0-17.5); MCH 32.7 pg (25.0-35.0); MCHC 32.6 g/dL (31.0-37.0); MCV 100.3 fL (80.0-100.0); Macrocytosis Slight; Mean Platelet Volume 8.8; Platelet Count 130 k/uL (150-450); RBC 3.81 m/uL (4.30-5.90); RDW 13.9 % (11.5-15.5); WBC 3.4 k/uL (3.8-10.6)
[2023-12-12 10:38] LABS: Blood Urea Nitrogen 11.7 mg/dL (9.0-27.0); Carbon Dioxide 24.7 mmol/L (21.6-31.8); Chloride 109 mmol/L (96-109); Glucose 111 mg/dL (70-110); Sodium 141 mmol/L (135-145)
[2023-12-12 10:53] LABS: ALT 821 U/L (10-49); AST 433 U/L (14-35); Alkaline Phosphatase 395 U/L (41-126); Calcium 8.2 mg/dL (8.7-10.3); Globulin 2.5 g/dL (1.6-3.3); Total Bilirubin 2.4 mg/dL (0.3-1.2); Total Protein 5.5 g/dL (6.2-8.2)
--- NOTE | 2023-12-12 14:02 | P.PN ---
Subjective Progress Note Date: 12/11/23 Principal diagnosis: Transaminitis This is a pleasant 83-year-old male who presented to the emergency department with complaints of abdominal pain. States pain has been ongoing for the last 3 weeks duration. He has a past medical history including hypertension, coronary artery disease status post heart cath and stent and glaucoma. Patient states abdominal pain has been mostly in the mid to lower right abdomen. States bowel movements have been daily usually 1 they have been very soft, but not diarrhea. He denies any nausea or vomiting, no fevers or chills. He had a colonoscopy about a year ago done at [facility] which he states he had a couple polyps status post polypectomy. He was noted to have elevated LFTs as well as amylase and lipase on admission. He had a CT of the abdomen pelvis with some concerns for possible colitis. He also underwent abdominal ultrasound that reported echogenic liver, no CBD dilation. He denies any history of liver disease. Denies any history of alcoholism, obesity and no new medications. Admitting labs: WBC 3.7 hemoglobin 14.5 hematocrit 43 platelet count 113,000 INR 1.1 sodium 139 potassium 4.3 BUN 21 creatinine 1.6 total bilirubin 3.1 AST 990 ALT 1315 alkaline phosphatase 517 amylase 142 lipase 953 12/11/2023 Patient seen and examined as a follow-up. Still has some right upper quadrant tenderness. No nausea or vomiting. Awaiting MRCP. He has been afebrile. WBC 3.4 hemoglobin 11.7. LFTs trending down, Total bilirubin 1.7 AST 473 ALT 834 alkaline phosphatase 363 lipase 181. Hepatitis panel nonreactive. Objective - Vital Signs Vital signs: Vital Signs Temp 98.2 F 12/11/23 00:40 Pulse 56 L 12/11/23 00:40 Resp 15 12/11/23 00:40 BP 131/65 12/11/23 00:40 Pulse Ox 96 12/11/23 00:40 FiO2 Intake & Output 12/10/23 12/11/23 12/11/23 18:59 06:59 18:59 Other: Voiding Method Toilet # Voids 2 1 - Exam General appearance: The patient is alert, oriented, appears in no acute distress. HET: Head is normocephalic and atraumatic. Conjunctiva pink. Sclera anicteric. Neck: Supple without lymphadenopathy. Abdomen: Soft, right upper quadrant mild tenderness, nondistended. Extremities: Normal skin color and turgor. No pedal edema Skin: No rashes, no jaundice Neurological: No focal deficits. Alert and oriented. - Labs CBC & Chem 7: 12/12/23 08:20 12/12/23 07:01 Labs: Abnormal Lab Results - Last 24 Hours (Table) 12/09/23 12/10/23 12/10/23 Range/Units 16:33 09:55 09:55 WBC 3.5 L (3.8-10.6) k/uL RBC 3.69 L (4.30-5.90) m/uL Hgb 12.3 L (13.0-17.5) gm/dL Hct 37.2 L (39.0-53.0) % MCV 100.7 H (80.0-100.0) fL Plt Count 108 L (150-450) k/uL Chloride 114 H (98-107) mmol/L Carbon Dioxide 21 L (22-30) mmol/L Creatinine 1.51 H (0.66-1.25) mg/dL Glucose 132 H (74-99) mg/dL Calcium 7.6 L (8.4-10.2) mg/dL Total Bilirubin 2.5 H (0.2-1.3) mg/dL AST 713 H (17-59) U/L ALT 900 H (4-49) U/L Alkaline Phosphatase 376 H (38-126) U/L Total Protein 5.3 L (6.3-8.2) g/dL Albumin 2.4 L (3.5-5.0) g/dL Lipase (23-300) U/L CA 19-9 Antigen 76.7 H (0.0-34.9) U/mL 12/10/23 Range/Units 17:25 WBC (3.8-10.6) k/uL RBC (4.30-5.90) m/uL Hgb (13.0-17.5) gm/dL Hct (39.0-53.0) % MCV (80.0-100.0) fL Plt Count (150-450) k/uL Chloride (98-107) mmol/L Carbon Dioxide (22-30) mmol/L Creatinine (0.66-1.25) mg/dL Glucose (74-99) mg/dL Calcium (8.4-10.2) mg/dL Total Bilirubin (0.2-1.3) mg/dL AST (17-59) U/L ALT (4-49) U/L Alkaline Phosphatase (38-126) U/L Total Protein (6.3-8.2) g/dL Albumin (3.5-5.0) g/dL Lipase 673 H (23-300) U/L CA 19-9 Antigen (0.0-34.9) U/mL Assessment and Plan (1) Transaminitis Narrative/Plan: 83-year-old presenting for abdominal pain mostly in the right and lower abdominal quadrants associated with soft stools over the last 3 weeks duration. Patient noted to have elevated LFTs and elevated pancreatic enzymes consistent with acute pancreatitis. CT abdomen and pelvis also showing inflammation near the cecum with possible etiology of mild to moderate colitis. Patient denies any history of liver disease, no history of hepatitis, no alcoholism, recent medications. Unclear etiology at this time, gallstone pancreatitis was possible etiology. Patient underwent MRCP reporting mildly contracted gallbladder with pericholecystic fluid. Correlate for signs and symptoms of acute cholecystitis. No evidence to suggest ductal stricture, choledocholithiasis or biliary ductal dilation. Trace bilateral pleural effusions right greater than left. Still unclear etiology for elevation of LFTs, could be some component certainly with the gallbladder however they are higher than usual for gallbladder disease. Will continue with liver workup, complete liver serologies ordered. Patient can follow-up with gastroenterology in the outpatient setting. Continue with recommendations from general surgery. Current Visit: Yes Status: Acute Code(s): R74.01 - ELEVATION OF LEVELS OF LIVER TRANSAMINASE LEVELS SNOMED Code(s): 274378425 (2) Pancreatitis Current Visit: Yes Status: Acute Code(s): K85.90 - ACUTE PANCREATITIS WITHOUT NECROSIS OR INFECTION, UNSP SNOMED Code(s): 40490569 (3) Abdominal pain Current Visit: Yes Status: Acute Code(s): R10.9 - UNSPECIFIED ABDOMINAL PAIN SNOMED Code(s): 18740295 (4) Colitis Current Visit: Yes Status: Acute Code(s): K52.9 - NONINFECTIVE GASTROENTERITIS AND COLITIS, UNSPECIFIED SNOMED Code(s): 82135802 (5) JEANNA (acute kidney injury) Current Visit: Yes Status: Acute Code(s): N17.9 - ACUTE KIDNEY FAILURE, UNSPECIFIED SNOMED Code(s): 40172450 Plan: 1. Continue symptomatic and supportive care 2. Avoid hepatotoxic medications 3. Liver serologies ordered, CMV EBV ordered 4. MRCP ordered and reviewed. There is no indication for intervention from gastroenterology. 5. Await further recommendations from general surgery 6. Recommend outpatient follow-up with gastroenterology Thank you for allowing us to participate in the care of the patient, the GI service will sign off, gastroenterology will not be available at the hospital this weekend. We will resume service on 12/15/2023 otherwise patient can follow- up with gastroenterology in 1 to 2 weeks. If further evaluation by gastroenterology is required the patient will need transfer as per the primary team's discretion. Thank you for this consultation, we will continue to follow. Dr. Cole Rutherford I agree with the dictator's note, documented as a scribe by Ronda Lucia.
--- NOTE | 2023-12-12 14:15 | P.PN ---
Subjective Progress Note Date: 12/12/23 CHIEF COMPLAINT: abdominal pain HISTORY OF PRESENT ILLNESS: Patient continues to have right-sided abdominal pain. Denies any nausea or vomiting. MRCP reports mildly contracted gallbladder with pericholecystic fluid. No evidence to suggest ductal stricture, choledocholithiasis or biliary ductal dilatation. Afebrile. WBC 3.4 Hgb 12.5 platelets 130 LFTs and total bilirubin remain elevated. Total max irubin is up from 1.7-2.4. Hepatitis panel negative PHYSICAL EXAM: VITAL SIGNS: Reviewed. GENERAL: Well-developed in no acute distress. ABDOMEN: Soft. Nondistended. Tenderness with palpation along the right side of the abdomen NEUROLOGIC: Alert and oriented. Cranial nerves II through XII grossly intact. ASSESSMENT: 1. Right-sided abdominal pain 2. Hepatitis. Elevated liver enzymes and total bilirubin 3. Possible colitis. Retroperitoneal edema/inflammation in the right upper quadrant adjacent to mild thickened cecum and ascending colon. Correlate for possible colitis noted on CT PLAN: -Start clear liquid diet -Continue GI workup. Further labs ordered by GI service. -Continue supportive care -Continue to monitor Physician Supervisor [employer] note has been reviewed by physician. Signing provider agrees with the documented findings, assessment, and plan of care. I have personally seen and examined the patient, reviewed the THEATRE PROFESSOR /PAs history, exam and MDM and agree with the assessment and plan as written. Based on total visit time, I have performed more than 50% of the visit. As above: Patient's liver enzymes about the same, bilirubin and alkaline phosphatase increased. Still has some mild right-sided pain. MRI reviewed with GI. Degree of liver enzyme elevation along with chronicity with no evidence of biliary obstruction currently continues to argue against choledocholithiasis. Agree with further workup for underlying hepatitis. Elevated pancreatic enzymes etiology unclear. Continue GI workup. Will remain on surgical standby. Objective - Vital Signs Vital signs: Vital Signs Temp 97.6 F 12/12/23 07:14 Pulse 64 12/12/23 07:14 Resp 20 12/12/23 07:14 BP 162/79 12/12/23 07:14 Pulse Ox 94 L 12/12/23 07:14 FiO2 Intake & Output 12/11/23 12/12/23 12/12/23 18:59 06:59 18:59 Other: Voiding Method Toilet # Voids 4 1 - Labs CBC & Chem 7: 12/12/23 08:20 12/12/23 07:01 Labs: Abnormal Lab Results - Last 24 Hours (Table) 12/12/23 12/12/23 Range/Units 07:01 08:20 WBC 3.4 L (3.8-10.6) k/uL RBC 3.81 L (4.30-5.90) m/uL Hgb 12.5 L (13.0-17.5) gm/dL Hct 38.2 L (39.0-53.0) % MCV 100.3 H (80.0-100.0) fL Plt Count 130 L (150-450) k/uL Est GFR (CKD-EPI) 46 L (>=60) BUN/Creatinine Ratio 7.80 L (12.00-20.00) Ratio Glucose 111 H (70-110) mg/dL Calcium 8.2 L (8.7-10.3) mg/dL Total Bilirubin 2.4 H (0.3-1.2) mg/dL AST 433 H (14-35) U/L ALT 821 H (10-49) U/L Alkaline Phosphatase 395 H (41-126) U/L Total Protein 5.5 L (6.2-8.2) g/dL Albumin 3.0 L (3.8-4.9) g/dL Albumin/Globulin Ratio 1.20 L (1.60-3.17) Ratio
--- NOTE | 2023-12-12 15:04 | P.PN ---
Subjective Progress Note Date: 12/12/23 H&P Date: 12/10/23 Chief Complaint: Right upper quadrant abdominal pain, abnormal labs This an 83-year-old gentleman with past medical history of CAD, [place], glaucoma, hypertension, COVID 08/19, rare alcohol use , hemorrhoids and multiple other medical issues directed by his PCP to come to the ER secondary to right upper quadrant abdominal pain x 1 month, critical lab abnormalities-acute liver failure/acute renal failure and elevated lipase. Reports ongoing right side abdominal pain exacerbated by food consumption. Denies nausea ,vomiting. Positive soft stools, not diarrhea. Denies weight loss. Denies prior history of liver disease. Rare alcohol use. Denies recent medication changes. Reports normal colonoscopy 1 year ago. On admission :Total bilirubin 3.1 decreased to 2.5, AST 990 decreased to 713, ALT 1315 decreased to 900, alk phos 517 decreased to 376. Lipase 953, creatinine 1.51. Afebrile ,WBC 3.5, Lactic acid 1.5. Hgb 12.3 platelets 108. Abdomen/pelvis CT reported retroperitoneal edema/inflammation in the right upper quadrant adjacent to mildly thickened cecum and ascending colon, correlate for possible nonspecific mild to moderate colitis, left-sided colonic diverticulosis without acute diverticulitis prostatomegaly at 4.5 cm. Gallbladder ultrasound reported echogenic liver suggesting diffuse hepatocellular disease, hepatic steatosis, unremarkable gallbladder and biliary tree. 12/11/2023 NPO, scheduled for MRCP today. Hepatitis panel negative. CA 19-9 elevated 76.7. Right-sided pain unchanged. Denies nausea, vomiting.afebrile, normal WBC. Hemoglobin 11.7, platelets 112. CMP pending. 12/12/2023 MRCP reported mildly contracted gallbladder with pericholecystic fluid, no evidence to suggest ductal stricture, choledocholithiasis or biliary Dr. Crouch dilatation, trace bilateral pleural effusions right greater than left. Denies nausea, vomiting. Afebrile, normal WBC. Hemoglobin 12.5, platelets 130. T. bili 2.4, AST 433, ALT 821, alk phos 395. Bicarb 24.7, BUN 1.7, creatinine 1.5. Recent lipase down to 181. Hepatitis panel negative. Objective - Vital Signs Vital signs: Vital Signs Temp 97.6 F 12/12/23 07:14 Pulse 64 12/12/23 07:14 Resp 20 12/12/23 07:14 BP 162/79 12/12/23 07:14 Pulse Ox 94 L 12/12/23 07:14 FiO2 Intake & Output 12/11/23 12/12/23 12/12/23 18:59 06:59 18:59 Other: Voiding Method Toilet # Voids 4 1 - Exam PHYSICAL EXAM: VITAL SIGNS: [As above] GENERAL: Alert and oriented x 3, sitting up in bed ,alert and oriented x 3, no acute distress HEENT: Normocephalic, conjunctivae normal. eyes normal. NECK: Supple, no JVD. No thyroid enlargement. No LNs CARDIOVASCULAR: S1, S2 regular. No murmur RESPIRATION: Unlabored, equal air entry .breath sounds diminished in the bases. ABDOMEN: Soft, nondistended ,right upper and lower quadrant tenderness. No guarding. Hyperactive bowel sounds LEGS: No edema. no swelling NERVOUS SYSTEM: Cranial N 2-12 grossly normal. No focal deficits. Skin: Warm and dry, no rash. - Labs CBC & Chem 7: 12/12/23 08:20 12/12/23 07:01 Labs: Abnormal Lab Results - Last 24 Hours (Table) 12/12/23 12/12/23 Range/Units 07:01 08:20 WBC 3.4 L (3.8-10.6) k/uL RBC 3.81 L (4.30-5.90) m/uL Hgb 12.5 L (13.0-17.5) gm/dL Hct 38.2 L (39.0-53.0) % MCV 100.3 H (80.0-100.0) fL Plt Count 130 L (150-450) k/uL Est GFR (CKD-EPI) 46 L (>=60) BUN/Creatinine Ratio 7.80 L (12.00-20.00) Ratio Glucose 111 H (70-110) mg/dL Calcium 8.2 L (8.7-10.3) mg/dL Total Bilirubin 2.4 H (0.3-1.2) mg/dL AST 433 H (14-35) U/L ALT 821 H (10-49) U/L Alkaline Phosphatase 395 H (41-126) U/L Total Protein 5.5 L (6.2-8.2) g/dL Albumin 3.0 L (3.8-4.9) g/dL Albumin/Globulin Ratio 1.20 L (1.60-3.17) Ratio Assessment and Plan Assessment: Abdominal pain , right-sided accompanied by transaminitis, pancreatitis, colitis, Pancytopenia, etiology unclear. status post MRCP. elevated CA 19-9. Acute renal failure CAD,NSTEMI, stenting of LAD ALLERGY, anaphylactic to LYNDA inhibitors Hypertension Hyperlipidemia Glaucoma Plan: Continue on current medication regimen ,monitoring and symptomatic treatment. Further recommendations per general surgery pending .continue avoiding hepatotoxic and nephrotoxic medications. Close monitoring of LFTs, renal function, repeat labs ordered for a.m. Pain management. The impression and plan of care has been dictated as directed. : I performed a history and examination of this patient, discussed the same with the dictator. I agree with the dictator's note ,documented as a scribe. Any additional findings or plans will be noted.
[2023-12-12 16:19] LABS: Ceruloplasmin 23.3 mg/dL (20.0-60.0)
[2023-12-13 10:58] VITALS: BMI 25.8
--- NOTE | 2023-12-13 11:44 | P.PN ---
Subjective Progress Note Date: 12/13/23 This an 83-year-old gentleman with past medical history of CAD, [place], glaucoma, hypertension, COVID 08/19, rare alcohol use , hemorrhoids and multiple other medical issues directed by his PCP to come to the ER secondary to right upper quadrant abdominal pain x 1 month, critical lab abnormalities-acute liver failure/acute renal failure and elevated lipase. Reports ongoing right side abdominal pain exacerbated by food consumption. Denies nausea ,vomiting. Positive soft stools, not diarrhea. Denies weight loss. Denies prior history of liver disease. Rare alcohol use. Denies recent medication changes. Reports normal colonoscopy 1 year ago. On admission :Total bilirubin 3.1 decreased to 2.5, AST 990 decreased to 713, ALT 1315 decreased to 900, alk phos 517 decreased to 376. Lipase 953, creatinine 1.51. Afebrile ,WBC 3.5, Lactic acid 1.5. Hgb 12.3 platelets 108. Abdomen/pelvis CT reported retroperitoneal edema/inflammation in the right upper quadrant adjacent to mildly thickened cecum and ascending colon, correlate for possible nonspecific mild to moderate colitis, left-sided colonic diverticulosis without acute diverticulitis prostatomegaly at 4.5 cm. Gallbladder ultrasound reported echogenic liver suggesting diffuse hepatocellular disease, hepatic steatosis, unremarkable gallbladder and biliary tree. 12/11/2023 NPO, scheduled for MRCP today. Hepatitis panel negative. CA 19-9 e levated 76.7. Right-sided pain unchanged. Denies nausea, vomiting.afebrile, normal WBC. Hemoglobin 11.7, platelets 112. CMP pending. 12/12/2023 MRCP reported mildly contracted gallbladder with pericholecystic fluid, no evidence to suggest ductal stricture, choledocholithiasis or biliary Dr. Crouch dilatation, trace bilateral pleural effusions right greater than left. Denies nausea, vomiting. Afebrile, normal WBC. Hemoglobin 12.5, platelets 130. T. bili 2.4, AST 433, ALT 821, alk phos 395. Bicarb 24.7, BUN 1.7, creatinine 1.5. Recent lipase down to 181. Hepatitis panel negative. 12/13/2023: Patient is on a clear liquid diet and tolerating this. He has had a bowel movement today that was dark. His pain is improved. Remains afebrile, blood pressures slightly elevated on some readings but otherwise normal. He remains on room air. BBC count remains low at 3.4 with a hemoglobin of 12.5 and platelets of 130. Labs show a elevated AST and ALT of there is slightly improved, alkaline phosphatase still elevated at 395, lipase last reported at 181. This is improved from 673. Alpha-1 antitrypsin and ceruloplasmin were negative. CMV and EBV titers along with hepatitis titers are negative. AFP tumor marker was negative, DEANA screen was negative Objective - Vital Signs Vital signs: Vital Signs Temp 97.4 F L 12/13/23 07:50 Pulse 61 12/13/23 07:50 Resp 18 12/13/23 07:50 BP 158/72 12/13/23 07:50 Pulse Ox 95 12/13/23 07:50 FiO2 Intake & Output 12/12/23 12/13/23 12/13/23 18:59 06:59 18:59 Output Total 150 Balance -150 Weight 79.379 kg Output: Urine 150 Other: Voiding Method Toilet # Voids 3 2 - Exam GENERAL: Alert and oriented x 3, sitting up in bed no significant jaundice noted HEENT: Normocephalic, conjunctivae normal. eyes normal. NECK: Supple, no JVD. No thyroid enlargement. No LNs CARDIOVASCULAR: S1, S2 regular. No murmur RESPIRATION: Unlabored, equal air entry .breath sounds diminished in the bases. ABDOMEN: Soft, nondistended minimal if any right upper quadrant tenderness. No guarding. Normal bowel sounds LEGS: No edema. no swelling NERVOUS SYSTEM: Cranial N 2-12 grossly normal. No focal deficits. Skin: Warm and dry, no rash. - Labs CBC & Chem 7: 12/12/23 08:20 12/12/23 07:01 Assessment and Plan Plan: Right Upper quadrant abdominal pain , transaminitis, pancreatitis, colitis, Pancytopenia, Acute renal failure CAD,NSTEMI, stenting of LAD ALLERGY, anaphylactic to LYNDA inhibitors Hypertension Hyperlipidemia Glaucoma At this point MRCP was negative, labs continue to show a pancytopenia, elevated lipase AST ALT and total bilirubin, but they are all slightly improved her m arkers have been negative, infectious etiology workup has been negative, Will continue clear liquid diet, will repeat labs in a.m., supportive care, wait on further recommendations from surgery for possible cholecystectomy in the future
[2023-12-13 13:09] LABS: HCT 37.7 % (39.0-53.0); HGB 12.4 gm/dL (13.0-17.5); MCH 32.7 pg (25.0-35.0); MCHC 32.8 g/dL (31.0-37.0); MCV 99.5 fL (80.0-100.0); Mean Platelet Volume 9.2; Platelet Count 114 k/uL (150-450); RBC 3.79 m/uL (4.30-5.90); RDW 14.4 % (11.5-15.5); WBC 2.9 k/uL (3.8-10.6)
--- NOTE | 2023-12-13 13:20 | P.PN ---
Subjective Progress Note Date: 12/13/23 Principal diagnosis: Colitis Patient has no new complaints. Objective - Vital Signs Vital signs: Vital Signs Temp 97.4 F L 12/13/23 07:50 Pulse 61 12/13/23 07:50 Resp 18 12/13/23 07:50 BP 158/72 12/13/23 07:50 Pulse Ox 95 12/13/23 07:50 FiO2 Intake & Output 12/12/23 12/13/23 12/13/23 18:59 06:59 18:59 Output Total 150 Balance -150 Weight 79.379 kg Output: Urine 150 Other: Voiding Method Toilet # Voids 3 2 - EENT Eyes: Present: PERRLA. Absent: abnormal pupil, anicteric sclerae, disc margins sharp, edentulous, EOMI, fundus normal, photophobia, dentition normal, poor dentition, ptosis, scleral icterus, normal appearance - Respiratory Respiratory: bilateral: CTA - Cardiovascular Rhythm: regular - Gastrointestinal General gastrointestinal: Present: normal bowel sounds. Absent: tenderness - Neurologic Neurologic: Present: CNII-XII intact - Musculoskeletal Musculoskeletal: Present: gait normal - Labs CBC & Chem 7: 12/13/23 11:51 12/12/23 07:01 Labs: Abnormal Lab Results - Last 24 Hours (Table) 12/13/23 Range/Units 11:51 WBC 2.9 L (3.8-10.6) k/uL RBC 3.79 L (4.30-5.90) m/uL Hgb 12.4 L (13.0-17.5) gm/dL Hct 37.7 L (39.0-53.0) % Plt Count 114 L (150-450) k/uL Assessment and Plan Assessment: Colitis Plan: Continue observation. Okay for diet.
[2023-12-13 14:24] LABS: Band Neutrophils % 1 %; Eosinophils # (M) 0.03 k/uL (0-0.7); Lymphocytes # (M) 0.87 k/uL (1.0-4.8); Monocytes # (M) 0.46 k/uL (0-1.0); Neutrophils % (M) 52 %; Nucleated Red Blood Cells 0 /100 WBC (0-0); Total Cells Counted 100
[2023-12-14 08:40] LABS: HCT 39.2 % (39.0-53.0); HGB 12.7 gm/dL (13.0-17.5); MCH 32.6 pg (25.0-35.0); MCHC 32.4 g/dL (31.0-37.0); MCV 100.7 fL (80.0-100.0); Macrocytosis Slight; Platelet Count 130 k/uL (150-450); RBC 3.89 m/uL (4.30-5.90); RDW 13.9 % (11.5-15.5); WBC 3.2 k/uL (3.8-10.6)
[2023-12-14 08:52] LABS: ALT 556 U/L (4-49); AST 358 U/L (17-59); African American GFR (CKD) 59 (>60 ml/min/1.73 sqM); Albumin 2.7 g/dL (3.5-5.0); Albumin/Globulin Ratio 0.9; Alkaline Phosphatase 333 U/L (38-126); Amylase 101 U/L (30-110); Anion Gap 4 mmol/L; Blood Urea Nitrogen 9 mg/dL (9-20); Carbon Dioxide 26 mmol/L (22-30); Chloride 107 mmol/L (98-107); Glucose 136 mg/dL (74-99); Lipase 508 U/L (23-300); Magnesium 1.6 mg/dL (1.6-2.3); Non-African American GFR(CKD) 51 (>60 ml/min/1.73 sqM); Sodium 137 mmol/L (137-145); Total Bilirubin 2.5 mg/dL (0.2-1.3); Total Protein 5.7 g/dL (6.3-8.2)
[2023-12-14 09:11] LABS: Eosinophils # (M) 0.03 k/uL (0-0.7); Lymphocytes # (M) 1.06 k/uL (1.0-4.8); Monocytes # (M) 0.64 k/uL (0-1.0); Neutrophils # (M) 1.47 k/uL (1.3-7.7); Neutrophils % (M) 46 %; Nucleated Red Blood Cells 0 /100 WBC (0-0); Total Cells Counted 100
[2023-12-14 09:12] LABS: Tear Drop Cells Present
--- NOTE | 2023-12-14 10:27 | P.PN ---
Subjective Progress Note Date: 12/14/23 Patient feels better today. He states his abdominal pain is improved. On exam vital signs are stable. Abdomen soft nontender. Resolving colitis. Patient to receive supportive care. Objective - Vital Signs Vital signs: Vital Signs Temp 98.7 F 12/14/23 06:55 Pulse 56 L 12/14/23 06:55 Resp 16 12/14/23 06:55 BP 145/78 12/14/23 06:55 Pulse Ox 96 12/14/23 06:55 FiO2 Intake & Output 12/13/23 12/14/23 12/14/23 18:59 06:59 18:59 Output Total 150 Balance -150 Weight 79.379 kg Output: Urine 150 Other: Voiding Method Toilet Toilet # Voids 1 - Labs CBC & Chem 7: 12/14/23 07:50 12/14/23 07:50 Labs: Abnormal Lab Results - Last 24 Hours (Table) 12/13/23 12/14/23 12/14/23 Range/Units 11:51 07:50 07:50 WBC 2.9 L 3.2 L (3.8-10.6) k/uL RBC 3.79 L 3.89 L (4.30-5.90) m/uL Hgb 12.4 L 12.7 L (13.0-17.5) gm/dL Hct 37.7 L (39.0-53.0) % MCV 100.7 H (80.0-100.0) fL Plt Count 114 L 130 L (150-450) k/uL Lymphocytes # (Manual) 0.87 L (1.0-4.8) k/uL Creatinine 1.29 H (0.66-1.25) mg/dL Glucose 136 H (74-99) mg/dL Calcium 8.0 L (8.4-10.2) mg/dL Total Bilirubin 2.5 H (0.2-1.3) mg/dL AST 358 H (17-59) U/L ALT 556 H (4-49) U/L Alkaline Phosphatase 333 H (38-126) U/L Total Protein 5.7 L (6.3-8.2) g/dL Albumin 2.7 L (3.5-5.0) g/dL Lipase 508 H (23-300) U/L
--- NOTE | 2023-12-14 12:41 | P.PN ---
Subjective This an 83-year-old gentleman with past medical history of CAD, [place], glaucoma, hypertension, COVID 08/19, rare alcohol use , hemorrhoids and multiple other medical issues directed by his PCP to come to the ER secondary to right upper quadrant abdominal pain x 1 month, critical lab abnormalities-acute liver failure/acute renal failure and elevated lipase. Reports ongoing right side abdominal pain exacerbated by food consumption. Denies nausea ,vomiting. Positive soft stools, not diarrhea. Denies weight loss. Denies prior history of liver disease. Rare alcohol use. Denies recent medication changes. Reports normal colonoscopy 1 year ago. On admission :Total bilirubin 3.1 decreased to 2.5, AST 990 decreased to 713, ALT 1315 decreased to 900, alk phos 517 decreased to 376. Lipase 953, creatinine 1.51. Afebrile ,WBC 3.5, Lactic acid 1.5. Hgb 12.3 platelets 108. Abdomen/pelvis CT reported retroperitoneal edema/inflammation in the right upper quadrant adjacent to mildly thickened cecum and ascending colon, correlate for possible nonspecific mild to moderate colitis, left-sided colonic diverticulosis without acute diverticulitis prostatomegaly at 4.5 cm. Gallbladder ultrasound reported echogenic liver suggesting diffuse hepatocellular disease, hepatic steatosis, unremarkable gallbladder and biliary tree. 12/11/2023 NPO, scheduled for MRCP today. Hepatitis panel negative. CA 19-9 elevated 76.7. Right-sided pain unchanged. Denies nausea, vomiting.afebrile, normal WBC. Hemoglobin 11.7, platelets 112. CMP pending. 12/12/2023 MRCP reported mildly contracted gallbladder with pericholecystic fluid, no evidence to suggest ductal stricture, choledocholithiasis or biliary Dr. Crouch dilatation, trace bilateral pleural effusions right greater than left. Denies nausea, vomiting. Afebrile, normal WBC. Hemoglobin 12.5, platelets 130. T. bili 2.4, AST 433, ALT 821, alk phos 395. Bicarb 24.7, BUN 1.7, creatinine 1.5. Recent lipase down to 181. Hepatitis panel negative. 12/13/2023: Patient is on a clear liquid diet and tolerating this. He has had a bowel movement today that was dark. His pain is improved. Remains afebrile, blood pressures slightly elevated on some readings but otherwise normal. He remains on room air. BBC count remains low at 3.4 with a hemoglobin of 12.5 and platelets of 130. Labs show a elevated AST and ALT of there is slightly improved, alkaline phosphatase still elevated at 395, lipase last reported at 181. This is improved from 673. Alpha-1 antitrypsin and ceruloplasmin were negative. CMV and EBV titers along with hepatitis titers are negative. AFP tumor marker was negative, DEANA screen was negative 12/14/2023: Patient leatha on clear liquid diet, Ensure clear has been added for protein. He reports his pain as a 1 out of 10. Today on exam there is some mild scleral icterus noted today. He remains afebrile. Blood pressures remained stable. He remains on room air. AST ALT alkaline phosphatase and amylase are all improved. There is a slight bump in his lipase today. His total bilirubin remains elevated. A consultation with hematology oncology regarding his pancytopenia is pending. Objective - Vital Signs Vital signs: Vital Signs Temp 98.7 F 12/14/23 06:55 Pulse 56 L 12/14/23 06:55 Resp 16 12/14/23 06:55 BP 145/78 12/14/23 06:55 Pulse Ox 96 12/14/23 06:55 FiO2 Intake & Output 12/13/23 12/14/23 12/14/23 18:59 06:59 18:59 Output Total 150 Balance -150 Weight 79.379 kg Output: Urine 150 Other: Voiding Method Toilet Toilet # Voids 1 - Exam GENERAL: Alert and oriented x 3, sitting up in bed HEENT: Normocephalic, minimal scleral icterus noted NECK: Supple, no JVD. No thyroid enlargement. No LNs CARDIOVASCULAR: S1, S2 regular. No murmur RESPIRATION: Unlabored, equal air entry .breath sounds diminished in the bases. ABDOMEN: Soft, nondistended minimal if any right upper quadrant tenderness. No guarding. Normal bowel sounds LEGS: No edema. no swelling NERVOUS SYSTEM: Cranial N 2-12 grossly normal. No focal deficits. Skin: Warm and dry, no rash. - Labs CBC & Chem 7: 12/14/23 07:50 12/14/23 07:50 Labs: Abnormal Lab Results - Last 24 Hours (Table) 12/13/23 12/14/23 12/14/23 Range/Units 11:51 07:50 07:50 WBC 2.9 L 3.2 L (3.8-10.6) k/uL RBC 3.79 L 3.89 L (4.30-5.90) m/uL Hgb 12.4 L 12.7 L (13.0-17.5) gm/dL Hct 37.7 L (39.0-53.0) % MCV 100.7 H (80.0-100.0) fL Plt Count 114 L 130 L (150-450) k/uL Lymphocytes # (Manual) 0.87 L (1.0-4.8) k/uL Creatinine 1.29 H (0.66-1.25) mg/dL Glucose 136 H (74-99) mg/dL Calcium 8.0 L (8.4-10.2) mg/dL Total Bilirubin 2.5 H (0.2-1.3) mg/dL AST 358 H (17-59) U/L ALT 556 H (4-49) U/L Alkaline Phosphatase 333 H (38-126) U/L Total Protein 5.7 L (6.3-8.2) g/dL Albumin 2.7 L (3.5-5.0) g/dL Lipase 508 H (23-300) U/L Assessment and Plan (1) Pancreatitis Current Visit: Yes Status: Acute Code(s): K85.90 - ACUTE PANCREATITIS WITHOUT NECROSIS OR INFECTION, UNSP SNOMED Code(s): 91216076 (2) Transaminitis Current Visit: Yes Status: Acute Code(s): R74.01 - ELEVATION OF LEVELS OF LIVER TRANSAMINASE LEVELS SNOMED Code(s): 524912958 (3) Colitis Current Visit: Yes Status: Acute Code(s): K52.9 - NONINFECTIVE GASTROENTERITIS AND COLITIS, UNSPECIFIED SNOMED Code(s): 56728665 (4) Pancytopenia associated with pancreatitis Current Visit: Yes Status: Acute Code(s): D61.818 - OTHER PANCYTOPENIA; K85.90 - ACUTE PANCREATITIS WITHOUT NECROSIS OR INFECTION, UNSP SNOMED Code(s): 508245809 (5) Essential (primary) hypertension Current Visit: Yes Status: Acute Code(s): I10 - ESSENTIAL (PRIMARY) HYPERTENSION SNOMED Code(s): 40566267 (6) Mixed hyperlipidemia Current Visit: Yes Status: Acute Code(s): E78.2 - MIXED HYPERLIPIDEMIA SNOMED Code(s): 352150662 (7) CAD (coronary artery disease) Current Visit: Yes Status: Acute Code(s): I25.10 - ATHSCL HEART DISEASE OF [place] CORONARY ARTERY W/O ANG PCTRS SNOMED Code(s): 07494166 (8) H/O myocardial infarction, greater than 8 weeks Current Visit: Yes Status: Acute Code(s): I25.2 - OLD MYOCARDIAL INFARCTION SNOMED Code(s): 0557114 (9) Glaucoma Current Visit: Yes Status: Acute Code(s): H40.9 - UNSPECIFIED GLAUCOMA SNOMED Code(s): 55435704 (10) JEANNA (acute kidney injury) Current Visit: Yes Status: Acute Code(s): N17.9 - ACUTE KIDNEY FAILURE, UNSPECIFIED SNOMED Code(s): 18498898 Plan: While all labs with the exception of lipase improved, plan on repeating those in a.m., continues clear liquid diet, wait on further surgical evaluation, a hematology consult was made regarding the pancytopenia which is could be from pancreatitis. Tumor markers have all been negative except for a CA 199, repeat labs in a.m., he will be reevaluated next 24 hours
--- NOTE | 2023-12-14 14:05 | P.CONS ---
History of Present Illness - Reason for Consult Consult date: 12/14/23 Pancytopenia - History of Present Illness The patient is an 83-year-old white male with multiple medical problems. The patient did come into the hospital because of right upper quadrant pain. He states that it started about a week prior. He had initially thought that he had hurt his ribs. The pain however persisted, and became more constant and severe. There was some associated nausea without any overt vomiting. He did not note any change in bowel habits. On admission he was noted to have elevation in liver enzymes, as well as amylase and lipase. During this admission his CBC has shown mild anemia with hemoglobin in the 11-12 range, platelet count in the 110's-130, and WBC in the 3-4000 range. WBC differential has been normal. CT abdomen and pelvis showed inflammation related to the cecum and ascending c olon, suggestive of nonspecific colitis. Gallbladder ultrasound showed change in hepatic echotexture, possibly due to hepatic steatosis. MRCP showed contracted gallbladder with cholecystitis in the differential. There was no abnormality noted in the pancreas, no abnormal masses or adenopathy. The patient's symptoms have progressively improved with supportive treatment. Significant amount of history was obtained from the family were at the bedside. There is no history of any blood disease or cancer previously. No history of any chronic liver disease, or excessive alcohol use. The patient's labs during this admission were negative for CMV and EBV IgM. Apparently he had a negative colonoscopy about a year ago Review of Systems Constitutional: Reports poor appetite, Reports weakness Eyes: denies blurred vision, denies pain Ears: deny: decreased hearing, ear discharge, earache, tinnitus Ears, nose, mouth and throat: Denies headache, Denies sore throat Cardiovascular: Reports decreased exercise tolerance Respiratory: Denies cough Gastrointestinal: Reports abdominal pain, Reports nausea Genitourinary: Reports as per HPI Musculoskeletal: Denies myalgias Integumentary: Denies pruritus, Denies rash Neurological: Denies numbness, Denies weakness Psychiatric: Denies anxiety, Denies depression Endocrine: Denies fatigue, Denies weight change Hematologic/Lymphatic: Reports as per HPI Past Medical History Past Medical History: Hypertension Additional Past Medical History / Comment(s): COVID (08/23/21) glaucoma History of Any Multi-Drug Resistant Organisms: None Reported Past Surgical History: Heart Catheterization With Stent, Hernia Repair Additional Past Surgical History / Comment(s): hernia-groin, cataract, eye surgery/lens Past Anesthesia/Blood Transfusion Reactions: No Reported Reaction Date of Last Stent Placement:: 2021 Past Psychological History: No Psychological Hx Reported Smoking Status: Never smoker Past Alcohol Use History: None Reported, Rare Additional Past Alcohol Use History / Comment(s): none Past Drug Use History: None Reported - Past Family History Father Family Medical History: Myocardial Infarction (AL) Brother(s) Family Medical History: Myocardial Infarction (AL) Medications and Allergies Home Medications Medication Instructions Recorded Confirmed Type Desloratadine 5 mg PO HS 10/28/21 12/09/23 History Atorvastatin [Lipitor] 80 mg PO HS #90 tab 10/30/21 12/09/23 Rx Metoprolol Tartrate [Lopressor] 25 mg PO BID #180 tab 10/30/21 12/09/23 Rx Aspirin EC [Ecotrin Low Dose] 81 mg PO DAILY 12/09/23 12/09/23 History Brimonidine Tartrate [Alphagan P 1 drop BOTH EYES TID 12/09/23 12/09/23 History 0.2% Ophth Soln] Losartan [Cozaar] 50 mg PO DAILY 12/09/23 12/09/23 History Netarsudil Mesylat/Latanoprost 1 drop BOTH EYES DAILY 12/09/23 12/09/23 History [Rocklatan 0.02%-0.005% Eye Drp] Nitroglycerin Sl Tabs [Nitrostat] 0.4 mg SL Q5M PRN 12/09/23 12/09/23 History Pantoprazole [Protonix] 40 mg PO DAILY 12/09/23 12/09/23 History Pilocarpine 1% Ophth Soln [Isopto 1 drop BOTH EYES QID 12/09/23 12/09/23 History Carpine 1%] Timolol 0.5% Ophth Soln [Timoptic 1 drop BOTH EYES BID 12/09/23 12/09/23 History 0.5% Ophth Soln] Allergies Allergy/AdvReac Type Severity Reaction Status Date / Time LYNDA Inhibitors Allergy Anaphylaxis Verified 12/09/23 21:42 Sulfa (Sulfonamide Allergy Rash/Hives Verified 12/09/23 21:42 Antibiotics) Physical Exam Vitals: Vital Signs Temp Pulse Pulse Resp BP Pulse Ox 12/14/23 06:55 98.7 F 56 L 16 145/78 96 12/14/23 01:23 97.7 F 63 16 128/66 93 L 12/13/23 20:00 97.8 F 60 17 189/93 99 12/13/23 16:57 97.6 F 57 L 18 163/76 98 Intake and Output 12/13/23 12/14/23 12/14/23 22:59 06:59 14:59 Other: Voiding Method Toilet # Voids 1 - Constitutional General appearance: no acute distress - EENT Eyes: EOMI, PERRLA ENT: hearing grossly normal, normal oropharynx - Neck Neck: no lymphadenopathy Thyroid: bilateral: normal size - Respiratory Respiratory: bilateral: CTA - Cardiovascular Rhythm: regular Heart sounds: normal: S1, S2 - Gastrointestinal General gastrointestinal: normal bowel sounds, soft - Integumentary Integumentary: normal - Neurologic Neurologic: CNII-XII intact - Musculoskeletal Musculoskeletal: generalized weakness, strength equal bilaterally - Psychiatric Psychiatric: A&O x's 3, appropriate affect Results CBC & Chem 7: 12/14/23 07:50 12/14/23 07:50 Labs: Abnormal Lab Results - Last 24 Hours (Table) 12/13/23 12/14/23 12/14/23 Range/Units 11:51 07:50 07:50 WBC 3.2 L (3.8-10.6) k/uL RBC 3.89 L (4.30-5.90) m/uL Hgb 12.7 L (13.0-17.5) gm/dL MCV 100.7 H (80.0-100.0) fL Plt Count 130 L (150-450) k/uL Lymphocytes # (Manual) 0.87 L (1.0-4.8) k/uL Creatinine 1.29 H (0.66-1.25) mg/dL Glucose 136 H (74-99) mg/dL Calcium 8.0 L (8.4-10.2) mg/dL Total Bilirubin 2.5 H (0.2-1.3) mg/dL AST 358 H (17-59) U/L ALT 556 H (4-49) U/L Alkaline Phosphatase 333 H (38-126) U/L Total Protein 5.7 L (6.3-8.2) g/dL Albumin 2.7 L (3.5-5.0) g/dL Lipase 508 H (23-300) U/L CT scan - abdomen: report reviewed US - abdomen: report reviewed MRI - abdomen: report reviewed Assessment and Plan (1) Pancytopenia Narrative/Plan: The patient was noted to have mild pancytopenia during this admission. All counts are well within a safe range. According to the patient's family, recent regular physical with his PCP, just prior to this admission had shown normal blood counts. In this situation the most likely etiology is a mild underlying marrow hypoproliferative stage, given the patient's age. The development of cytopenias is due to the additional stress of his ongoing acute inflammation. -Check labs to rule out other causes -Resuming lab workup to be negative, it would be expected that his counts will revert to baseline, once his acute condition resolves. Current Visit: Yes Status: Acute Code(s): D61.818 - OTHER PANCYTOPENIA SNOMED Code(s): 838022792 Plan: Refer to the admitting service and other consultants for management of his presenting complaint.
[2023-12-14 20:27] VITALS: RESP 16
[2023-12-15 02:41] VITALS: PULSE 60
[2023-12-15 08:15] VITALS: BP 146/76; TEMP 98.1
[2023-12-15 08:41] LABS: Basophils # (A) 0.06 X 10*3/uL (0.00-0.10); Basophils % (A) 1.6 %; Eosinophils # (A) 0.11 X 10*3/uL (0.04-0.35); HCT 38.3 % (39.6-50.0); HGB 12.4 g/dL (13.0-17.0); Immature Grans, Automated 0 %; Lymphocytes # (A) 1.42 X 10*3/uL (0.90-5.00); Lymphocytes % (A) 38.4 %; MCH 31.9 pg (27.0-32.0); MCHC 32.4 g/dL (32.0-37.0); MCV 98.5 FL (80.0-97.0); Mean Platelet Volume 11.6 FL (9.5-12.2); Monocytes # (A) 0.66 X 10*3/uL (0.20-1.00); Monocytes % (A) 17.8 %; NRBC Per 100 WBC 0 X 10*3/uL (0.00-0.01); Neutrophils # (A) 1.45 X 10*3/uL (1.80-7.70); Neutrophils % (A) 39.2 %; Platelet Count 148 X 10*3/uL (140-440); RBC 3.89 X 10*6/uL (4.40-5.60); RDW 14.8 % (11.5-14.5)
[2023-12-15 08:54] LABS: Albumin 3.1 g/dL (3.8-4.9); Protein, Total 5.6 g/dL (6.2-8.2)
[2023-12-15 09:03] LABS: % Iron Saturation 60.44 (15.00-50.00); ALT 518 U/L (10-49); AST 259 U/L (14-35); Albumin 3.2 g/dL (3.8-4.9); Albumin/Globulin Ratio 1.23 Ratio (1.60-3.17); Alkaline Phosphatase 326 U/L (41-126); Amylase 103 U/L (23-121); BUN/Creat Ratio 6.69 Ratio (12.00-20.00); Blood Urea Nitrogen 8.7 mg/dL (9.0-27.0); Calcium 8.4 mg/dL (8.7-10.3); Carbon Dioxide 27.6 mmol/L (21.6-31.8); Chloride 106 mmol/L (96-109); Globulin 2.6 g/dL (1.6-3.3); Glucose 95 mg/dL (70-110); Iron 136 UG/DL (65-175); LDH 287 U/L (120-246); Lipase 135 U/L (14-60); Magnesium 1.9 mg/dL (1.5-2.4); Potassium 4.1 mmol/L (3.5-5.5); Rheumatoid Factor, Qnt <15 IU/mL (0-15); Sodium 142 mmol/L (135-145); Total Bilirubin 2.1 mg/dL (0.3-1.2); Total Iron Binding Capacity 225 UG/DL (228-460); Total Protein 5.8 g/dL (6.2-8.2)
[2023-12-15 09:32] LABS: Reticulocyte % 1.23 % (0.10-1.80)
--- NOTE | 2023-12-15 10:22 | P.PN ---
Subjective Progress Note Date: 12/15/23 Principal diagnosis: Transaminitis This is a pleasant 83-year-old male who presented to the emergency department with complaints of abdominal pain. States pain has been ongoing for the last 3 weeks duration. He has a past medical history including hypertension, coronary artery disease status post heart cath and stent and glaucoma. Patient states abdominal pain has been mostly in the mid to lower right abdomen. States bowel movements have been daily usually 1 they have been very soft, but not diarrhea. He denies any nausea or vomiting, no fevers or chills. He had a colonoscopy about a year ago done at [facility] which he states he had a couple polyps status post polypectomy. He was noted to have elevated LFTs as well as amylase and lipase on admission. He had a CT of the abdomen pelvis with some concerns for possible colitis. He also underwent abdominal ultrasound that reported echogenic liver, no CBD dilation. He denies any history of liver disease. Denies any history of alcoholism, obesity and no new medications. Admitting labs: WBC 3.7 hemoglobin 14.5 hematocrit 43 platelet count 113,000 INR 1.1 sodium 139 potassium 4.3 BUN 21 creatinine 1.6 total bilirubin 3.1 AST 990 ALT 1315 alkaline phosphatase 517 amylase 142 lipase 953 12/11/2023 Patient seen and examined as a follow-up. Still has some right upper quadrant tenderness. No nausea or vomiting. Awaiting MRCP. He has been afebrile. WBC 3.4 hemoglobin 11.7. LFTs trending down, Total bilirubin 1.7 AST 473 ALT 834 alkaline phosphatase 363 lipase 181. Hepatitis panel nonreactive. 12/15/2023 Gastroenterology is seeing patient as a follow-up. There was no gastro enterolo gy in hospital through the weekend. Patient states abdominal pain is nearly gone. He has been up and ambulating. He is eating well with no nausea or vomiting. He still has elevated LFTs. Hematology was consulted for pancytopenia. Today's labs WBC 3.7 hemoglobin 12.4 hematocrit 38 platelet count 148,000 iron 136 TIBC 225 saturation 60 ferritin 837 total bilirubin 2.1 AST 259 ALT 518 alkaline phosphatase 326 lipase 135. Liver serologies negative to date, EBV and CMV IgG M nonreactive. Objective - Vital Signs Vital signs: Vital Signs Temp 98.1 F 12/15/23 06:45 Pulse 60 12/15/23 06:45 Resp 16 12/15/23 06:45 BP 146/76 12/15/23 06:45 Pulse Ox 95 12/15/23 06:45 FiO2 Intake & Output 12/14/23 12/15/23 12/15/23 18:59 06:59 18:59 Other: Voiding Method Toilet # Voids 3 - Exam General appearance: The patient is alert, oriented, appears in no acute distress. HET: Head is normocephalic and atraumatic. Conjunctiva pink. Sclera anicteric. Neck: Supple without lymphadenopathy. Abdomen: Soft, nontender, nondistended. Extremities: Normal skin color and turgor. No pedal edema Skin: No rashes, no jaundice Neurological: No focal deficits. Alert and oriented. - Labs CBC & Chem 7: 12/15/23 06:19 12/15/23 06:19 Labs: Abnormal Lab Results - Last 24 Hours (Table) 12/15/23 12/15/23 Range/Units 06:19 06:19 WBC 3.70 L (4.50-10.00) X 10*3/uL RBC 3.89 L (4.40-5.60) X 10*6/uL Hgb 12.4 L (13.0-17.0) g/dL Hct 38.3 L (39.6-50.0) % MCV 98.5 H (80.0-97.0) FL RDW 14.8 H (11.5-14.5) % Neutrophils # 1.45 L (1.80-7.70) X 10*3/uL Total Protein (PEP) 5.6 L (6.2-8.2) g/dL Albumin (PEP) 3.1 L (3.8-4.9) g/dL Assessment and Plan (1) Transaminitis Narrative/Plan: 83-year-old presenting for abdominal pain mostly in the right and lower abdominal quadrants associated with soft stools over the last 3 weeks duration. Patient noted to have elevated LFTs and elevated pancreatic enzymes consistent with acute pancreatitis. CT abdomen and pelvis also showing inflammation near the cecum with possible etiology of mild to moderate colitis. Patient denies any history of liver disease, no history of hepatitis, no alcoholism, recent medications. Unclear etiology at this time, gallstone pancreatitis was possible etiology. Patient underwent MRCP reporting mildly contracted gallbladder with pericholecystic fluid. Correlate for signs and symptoms of acute cholecystitis. No evidence to suggest ductal stricture, choledocholithiasis or biliary ductal dilation. Trace bilateral pleural effusions right greater than left. Still unclear etiology for elevation of LFTs, could be some component certainly with the gallbladder however they are higher than usual for gallbladder disease. Will continue with liver workup, complete liver serologies ordered and reviewed. Patient can follow-up with gastroenterology in the outpatient setting. Continue with recommendations from general surgery. Current Visit: Yes Status: Acute Code(s): R74.01 - ELEVATION OF LEVELS OF LIVER TRANSAMINASE LEVELS SNOMED Code(s): 160562139 (2) Pancreatitis Current Visit: Yes Status: Acute Code(s): K85.90 - ACUTE PANCREATITIS WITHOUT NECROSIS OR INFECTION, UNSP SNOMED Code(s): 62102025 (3) Abdominal pain Current Visit: Yes Status: Acute Code(s): R10.9 - UNSPECIFIED ABDOMINAL PAIN SNOMED Code(s): 01339411 (4) Colitis Current Visit: Yes Status: Acute Code(s): K52.9 - NONINFECTIVE GASTROENTERITIS AND COLITIS, UNSPECIFIED SNOMED Code(s): 55470175 (5) JEANNA (acute kidney injury) Current Visit: Yes Status: Acute Code(s): N17.9 - ACUTE KIDNEY FAILURE, UNSPECIFIED SNOMED Code(s): 75786116 Plan: 1. Continue symptomatic and supportive care 2. Avoid hepatotoxic medications 3. Liver serologies ordered, CMV EBV ordered 4. MRCP ordered and reviewed. There is no indication for intervention from gastroenterology. 5. Await further recommendations from general surgery 6. Recommend close outpatient follow-up with gastroenterology Thank you for this consultation, patient to follow-up with gastroenterology to monitor liver enzymes. Thank you for this consultation, we will continue to follow. Dr. Cole Rutherford I agree with the dictator's note, documented as a scribe by Ronda Lucia.
--- NOTE | 2023-12-15 11:31 | P.DS ---
Providers Date of admission: 12/09/23 18:28 Expected date of discharge: 12/15/23 Attending physician: Jamal Oneil Consults: 12/09/23 18:27 Consult Physician Routine Consulting Provider: Josee Rutherford Consult Reason/Comments: transaminitis Do you want consulting provider notified?: Yes, Notify in am 12/10/23 07:58 Consult Physician Routine Consulting Provider: Tyler Nicholas Consult Reason/Comments: abdominal pain Do you want consulting provider notified?: Yes 12/13/23 11:49 Consult Physician Routine Consulting Provider: Coy Ruelas Consult Reason/Comments: pancytopenia Do you want consulting provider notified?: Yes Primary care physician: Jamal Oneil Hospital Course: Final diagnoses Abdominal pain , right-sided accompanied by transaminitis, acute pancreatitis- possible gallstone pancreatitis, colitis, mild pancytopenia, suspect related to mild underlying marrow hypoproliferative stage given patient's age, development of cytopenias due to the additional stress of his ongoing acute inflammation with expectations of counts returning to baseline once acute condition resolves as per oncology/hematology .status post MRCP. elevated CA 19-9. 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 Reports ongoing right side abdominal pain exacerbated by food consumption. Denies nausea ,vomiting. Positive soft stools, not diarrhea. Denies weight loss. Denies prior history of liver disease. Rare alcohol use. Denies recent medication changes. Reports normal colonoscopy 1 year ago. On admission :Total bilirubin 3.1 decreased to 2.5, AST 990 decreased to 713, ALT 1315 decreased to 900, alk phos 517 decreased to 376. Lipase 953, creatinine 1.51. Afebrile ,WBC 3.5, Lactic acid 1.5. Hgb 12.3 platelets 108. Abdomen/pelvis CT reported retroperitoneal edema/inflammation in the right upper quadrant adjacent to mildly thickened cecum and ascending colon, correlate for possible nonspecific mild to moderate colitis, left-sided colonic diverticulosis without acute diverticulitis prostatomegaly at 4.5 cm. Gallbladder ultrasound reported echogenic liver suggesting diffuse hepatocellular disease, hepatic s teatosis, unremarkable gallbladder and biliary tree. 12/11/2023 NPO, scheduled for MRCP today. Hepatitis panel negative. CA 19-9 elevated 76.7. Right-sided pain unchanged. Denies nausea, vomiting.afebrile, normal WBC. Hemoglobin 11.7, platelets 112. CMP pending. 12/12/2023 MRCP reported mildly contracted gallbladder with pericholecystic fluid, no evidence to suggest ductal stricture, choledocholithiasis or biliary Dr. Crouch dilatation, trace bilateral pleural effusions right greater than left. Denies nausea, vomiting. Afebrile, normal WBC. Hemoglobin 12.5, platelets 130. T. bili 2.4, AST 433, ALT 821, alk phos 395. Bicarb 24.7, BUN 1.7, creatinine 1.5. Recent lipase down to 181. Hepatitis panel negative. Further recommendations per general surgery pending .continue avoiding hepatotoxic and nephrotoxic medications. Close monitoring of LFTs, renal function, repeat labs ordered for a.m. Pain management. Evaluated by oncology, suspecting etiology of pancytopenia related to mild underlying marrow hypoproliferative stage given patient's age, development of cytopenias due to the additional stress of his ongoing acute inflammation with expectations of counts returning to baseline once acute condition resolves. LFTs and lipase continue trending down. Denies nausea or vomiting on his clear liquid diet .Minimal abdominal tenderness. Ambulating, tolerating exertion well. diet will be advanced. EBV and CMV IgG M nonreactive.afebrile, normal WBC, hemoglobin 12.4, platelets 148, iron 136, TIBC 225, %saturation 60, ferritin 837 , T. bili 2.1, AST 259, ALT 518, alk phos 326, lipase 135. Liver serologies to date negative as per GI.Tumor markers have all been negative except for a CA 199. Patient will be discharged home today in a stable condition with guarded prognosis pending final DC recommendations and clearance from both GI and general surgery. GENERAL: Alert and oriented x 3, sitting up in bed HEENT: Normocephalic, conjunctiva normal/pink, sclera anicteric NECK: Supple, no JVD. CARDIOVASCULAR: S1, S2 regular. No murmur RESPIRATION: Unlabored, equal air entry, essentially clear ABDOMEN: Soft, nondistended, nontender no guarding. Normal bowel sounds LEGS: No edema. no swelling NERVOUS SYSTEM: Cranial N 2-12 grossly normal. No focal deficits. Skin: Warm and dry, no rash. The impression and plan of care has been dictated as directed. : I performed a history and examination of this patient, discussed the same with the dictator. I agree with the dictator's note ,documented as a scribe. Any additional findings or plans will be noted. Patient Condition at Discharge: Stable Plan - Discharge Summary Discharge Rx Participant: No New Discharge Prescriptions: New Docusate [Colace] 100 mg PO BID cap Continue Metoprolol Tartrate [Lopressor] 25 mg PO BID #180 tab Pilocarpine 1% Ophth Soln [Isopto Carpine 1%] 1 drop BOTH EYES QID Losartan [Cozaar] 50 mg PO DAILY Pantoprazole [Protonix] 40 mg PO DAILY Desloratadine 5 mg PO HS Netarsudil Mesylat/Latanoprost [Rocklatan 0.02%-0.005% Eye Drp] 1 drop BOTH EYES DAILY Timolol 0.5% Ophth Soln [Timoptic 0.5% Ophth Soln] 1 drop BOTH EYES BID Brimonidine Tartrate [Alphagan P 0.2% Ophth Soln] 1 drop BOTH EYES TID Nitroglycerin Sl Tabs [Nitrostat] 0.4 mg SL Q5M PRN PRN Reason: Chest Pain Discontinued Aspirin EC [Ecotrin Low Dose] 81 mg PO DAILY Atorvastatin [Lipitor] 80 mg PO HS #90 tab Discharge Medication List Desloratadine 5 mg PO HS 10/28/21 [History] Metoprolol Tartrate [Lopressor] 25 mg PO BID #180 tab 10/30/21 [Rx] Brimonidine Tartrate [Alphagan P 0.2% Ophth Soln] 1 drop BOTH EYES TID 12/09/23 [History] Losartan [Cozaar] 50 mg PO DAILY 12/09/23 [History] Netarsudil Mesylat/Latanoprost [Rocklatan 0.02%-0.005% Eye Drp] 1 drop BOTH EYES DAILY 12/09/23 [History] Nitroglycerin Sl Tabs [Nitrostat] 0.4 mg SL Q5M PRN 12/09/23 [History] Pantoprazole [Protonix] 40 mg PO DAILY 12/09/23 [History] Pilocarpine 1% Ophth Soln [Isopto Carpine 1%] 1 drop BOTH EYES QID 12/09/23 [History] Timolol 0.5% Ophth Soln [Timoptic 0.5% Ophth Soln] 1 drop BOTH EYES BID 12/09/23 [History] Docusate [Colace] 100 mg PO BID cap 12/15/23 [Rx] Follow up Appointment(s)/Referral(s): Jamal Oneil MD [Primary Care Provider] - 3 Days Activity/Diet/Wound Care/Special Instructions: Confirm GI and general surgery follow-up appointments
--- NOTE | 2023-12-15 12:12 | P.PN ---
Subjective Progress Note Date: 12/15/23 CHIEF COMPLAINT: abdominal pain HISTORY OF PRESENT ILLNESS: Patient is abdominal pain has resolved. He denies any nausea or vomiting. He is tolerating liquid diet. MRCP reports mildly contracted gallbladder with pericholecystic fluid. No evidence to suggest ductal stricture, choledocholithiasis or biliary ductal dilatation. Afebrile. WBC 3.7 Hgb 12.4 total bilirubin 2.1 AST 259 ALT 518 alk phos 326 patient was cleared by GI service for discharge. PHYSICAL EXAM: VITAL SIGNS: Reviewed. GENERAL: Well-developed in no acute distress. ABDOMEN: Soft. Nondistended. nontender NEUROLOGIC: Alert and oriented. Cranial nerves II through XII grossly intact. ASSESSMENT: 1. Right-sided abdominal pain improved 2. Hepatitis. Elevated liver enzymes and total bilirubin. 3. Elevated pancreatic enzymes improving 4. Possible colitis. Retroperitoneal edema/inflammation in the right upper quadrant adjacent to mild thickened cecum and ascending colon. Correlate for possible colitis noted on CT PLAN: -Patient can be discharged from surgical standpoint -Agree with advancing diet -Patient to follow-up with Dr. Nicholas in office and to follow-up with GI service outpatient Physician Groundskeeping Yardman note has been reviewed by physician. Signing provider agrees with the documented findings, assessment, and plan of care. I have personally seen and examined the patient, reviewed the [employer] OPERATOR /PAs history, exam and MDM and agree with the assessment and plan as written. Based on total visit time, I have performed more than 50% of the visit. As above: Patient with presentation demonstrating hepatitis and pancreatitis. Changes on the CAT scan regarding the colon likely related to the retroperitoneal inflammation from suspected pancreatitis. Etiology unfortunately unclear during this hospital stay. Enzymes and duration of symptoms longer than 1 to be expected for choledocholithiasis/gallstone carreon creatitis. No stone seen on either MRCP or ultrasound. Intrahepatic process thought to be most likely. Patient may benefit from liver biopsy as outpatient. Continue GI workup of the patient's elevated liver enzymes. Patient will follow-up with me in the office in the outpatient setting as well. No immediate plans for cholecystectomy. Objective - Vital Signs Vital signs: Vital Signs Temp 98.1 F 12/15/23 06:45 Pulse 60 12/15/23 08:51 Resp 16 12/15/23 08:51 BP 146/76 12/15/23 06:45 Pulse Ox 95 12/15/23 06:45 FiO2 Intake & Output 12/14/23 12/15/23 12/15/23 18:59 06:59 18:59 Other: Voiding Method Toilet Toilet # Voids 3 - Labs CBC & Chem 7: 12/15/23 06:19 12/15/23 06:19 Labs: Abnormal Lab Results - Last 24 Hours (Table) 12/15/23 12/15/23 12/15/23 Range/Units 06:19 06:19 06:19 WBC 3.70 L (4.50-10.00) X 10*3/uL RBC 3.89 L (4.40-5.60) X 10*6/uL Hgb 12.4 L (13.0-17.0) g/dL Hct 38.3 L (39.6-50.0) % MCV 98.5 H (80.0-97.0) FL RDW 14.8 H (11.5-14.5) % Neutrophils # 1.45 L (1.80-7.70) X 10*3/uL BUN 8.7 L (9.0-27.0) mg/dL Est GFR (CKD-EPI) 55 L (>=60) BUN/Creatinine Ratio 6.69 L (12.00-20.00) Ratio Calcium 8.4 L (8.7-10.3) mg/dL TIBC 225 L (228-460) UG/DL % Saturation 60.44 H (15.00-50.00) Transferrin 161.0 L (204.0-354.0) mg/dL Ferritin 837.0 H (22.0-322.0) ng/mL Total Bilirubin 2.1 H (0.3-1.2) mg/dL AST 259 H (14-35) U/L ALT 518 H (10-49) U/L Alkaline Phosphatase 326 H (41-126) U/L Lactate Dehydrogenase 287 H (120-246) U/L Total Protein 5.8 L (6.2-8.2) g/dL Total Protein (PEP) 5.6 L (6.2-8.2) g/dL Albumin 3.2 L (3.8-4.9) g/dL Albumin (PEP) 3.1 L (3.8-4.9) g/dL Albumin/Globulin Ratio 1.23 L (1.60-3.17) Ratio Lipase 135 H (14-60) U/L Vitamin B12 1557.0 H (200.0-944.0) pg/mL
[2023-12-15 12:45] LABS: Free Kappa Lt Chain Qnt, Serum 5.93 mg/dL (0.33-1.94); Free Lambda Lt Chain Qnt, Seru 4.66 mg/dL (0.57-2.63)
--- NOTE | 2023-12-15 14:37 | P.PN ---
Subjective Progress Note Date: 12/15/23 Principal diagnosis: Pancytopenia, acute. Liver failure In follow-up today patient has no acute complaints, denies any nausea, vomiting, abdominal pain, distention, he is tolerating soft diet currently, reports no recent bowel movement. He denies any bleeding or unusual bruising. Objective - Vital Signs Vital signs: Vital Signs Temp 98.1 F 12/15/23 06:45 Pulse 60 12/15/23 08:51 Resp 16 12/15/23 08:51 BP 146/76 12/15/23 06:45 Pulse Ox 95 12/15/23 06:45 FiO2 Intake & Output 12/14/23 12/15/23 12/15/23 18:59 06:59 18:59 Other: Voiding Method Toilet Toilet # Voids 3 - Constitutional General appearance: Present: average body habitus, cooperative, no acute distress - EENT Eyes: Present: anicteric sclerae, EOMI ENT: Present: hearing grossly normal - Respiratory Respiratory: bilateral: CTA - Cardiovascular Heart sounds: normal: S1, S2 Abnormal Heart Sounds: Absent: systolic murmur, diastolic murmur, rub, S3 Gallop, S4 Gallop, click, other - Gastrointestinal General gastrointestinal: Present: normal bowel sounds, soft. Absent: absent bowel sounds, decreased bowel sounds, distended, hepatomegaly, hyperactive bowel sounds, organomegaly, rigid, scaphoid, splenomegaly, tenderness, umbilical herni a, ventral hernia - Integumentary Integumentary: Present: normal - Neurologic Neurologic: Present: CNII-XII intact - Musculoskeletal Musculoskeletal: Present: strength equal bilaterally - Psychiatric Psychiatric: Present: A&O x's 3, appropriate affect, intact judgment & insight - Labs CBC & Chem 7: 12/15/23 06:19 12/15/23 06:19 Labs: Abnormal Lab Results - Last 24 Hours (Table) 12/13/23 12/15/23 12/15/23 Range/Units 11:51 06:19 06:19 WBC (4.50-10.00) X 10*3/uL RBC (4.40-5.60) X 10*6/uL Hgb (13.0-17.0) g/dL Hct (39.6-50.0) % MCV (80.0-97.0) FL RDW (11.5-14.5) % Neutrophils # (1.80-7.70) X 10*3/uL Pathologist Review See comment A BUN 8.7 L (9.0-27.0) mg/dL Est GFR (CKD-EPI) 55 L (>=60) BUN/Creatinine Ratio 6.69 L (12.00-20.00) Ratio Calcium 8.4 L (8.7-10.3) mg/dL TIBC 225 L (228-460) UG/DL % Saturation 60.44 H (15.00-50.00) Transferrin 161.0 L (204.0-354.0) mg/dL Ferritin 837.0 H (22.0-322.0) ng/mL Total Bilirubin 2.1 H (0.3-1.2) mg/dL AST 259 H (14-35) U/L ALT 518 H (10-49) U/L Alkaline Phosphatase 326 H (41-126) U/L Lactate Dehydrogenase 287 H (120-246) U/L Total Protein 5.8 L (6.2-8.2) g/dL Total Protein (PEP) 5.6 L (6.2-8.2) g/dL Albumin 3.2 L (3.8-4.9) g/dL Albumin (PEP) 3.1 L (3.8-4.9) g/dL Albumin/Globulin Ratio 1.23 L (1.60-3.17) Ratio Lipase 135 H (14-60) U/L Vitamin B12 1557.0 H (200.0-944.0) pg/mL Free [place] LC, Quant 5.93 H (0.33-1.94) mg/dL Free Lambda LC, Quant 4.66 H (0.57-2.63) mg/dL 12/15/23 Range/Units 06:19 WBC 3.70 L (4.50-10.00) X 10*3/uL RBC 3.89 L (4.40-5.60) X 10*6/uL Hgb 12.4 L (13.0-17.0) g/dL Hct 38.3 L (39.6-50.0) % MCV 98.5 H (80.0-97.0) FL RDW 14.8 H (11.5-14.5) % Neutrophils # 1.45 L (1.80-7.70) X 10*3/uL Pathologist Review BUN (9.0-27.0) mg/dL Est GFR (CKD-EPI) (>=60) BUN/Creatinine Ratio (12.00-20.00) Ratio Calcium (8.7-10.3) mg/dL TIBC (228-460) UG/DL % Saturation (15.00-50.00) Transferrin (204.0-354.0) mg/dL Ferritin (22.0-322.0) ng/mL Total Bilirubin (0.3-1.2) mg/dL AST (14-35) U/L ALT (10-49) U/L Alkaline Phosphatase (41-126) U/L Lactate Dehydrogenase (120-246) U/L Total Protein (6.2-8.2) g/dL Total Protein (PEP) (6.2-8.2) g/dL Albumin (3.8-4.9) g/dL Albumin (PEP) (3.8-4.9) g/dL Albumin/Globulin Ratio (1.60-3.17) Ratio Lipase (14-60) U/L Vitamin B12 (200.0-944.0) pg/mL Free [place] LC, Quant (0.33-1.94) mg/dL Free Lambda LC, Quant (0.57-2.63) mg/dL Assessment and Plan (1) Pancytopenia Current Visit: Yes Status: Acute Priority: Medium Code(s): D61.818 - OTHER PANCYTOPENIA SNOMED Code(s): 019733007 Plan: Pancytopenia -Mild pancytopenia this admission. -Since admission, platelets have recovered to normal level. WBCs are up to 3.7, almost normal. Hemoglobin in the 12-12.5 range. Nothing progressive. -Pancytopenia workup ordered, most of the results thus far are nondiagnostic, not indicative of an acute marrow process or specific deficiency. Some results still pending. Will follow with all of the ordered testing until completed. -Pt age and acute stress of liver failure/colitis is the likely cause of the dr ops in blood counts. As patient is recovering in the hospital, his counts are slightly improving. -Recommend ongoing follow-up with PCP to resolution, with referral back to Hematology if persistent, progressive, or new findings.
[2023-12-16 18:20] LABS: Gamma Globulin 1.06 g/dL (0.70-1.50)
[2023-12-17 05:32] LABS: Methylmalonic Acid 0.26 umol/L (<0.40)
== END 2023-12-15 15:26 | disposition home or self-care (01) | DRG 438 ==
LOC: EC 16:01 → 4SSUR 18:28
PROVIDERS: ADMIT Family Medicine; ATTEND Family Medicine
DX: K85.90 Acute pancreatitis without necrosis or infection, unspecified (principal); K72.00 Acute and subacute hepatic failure without coma; N17.9 Acute kidney failure, unspecified; D47.1 Chronic myeloproliferative disease; K76.0 Fatty (change of) liver, not elsewhere classified; K57.30 Diverticulosis of large intestine without perforation or abscess without bleeding; E78.2 Mixed hyperlipidemia; H40.9 Unspecified glaucoma; I10 Essential (primary) hypertension; I25.10 Atherosclerotic heart disease of native coronary artery without angina pectoris; I25.2 Old myocardial infarction; K52.9 Noninfective gastroenteritis and colitis, unspecified; R74.01 Elevation of levels of liver transaminase levels; Z88.8 Allergy status to other drugs, medicaments and biological substances; Z88.2 Allergy status to sulfonamides; Z87.19 Personal history of other diseases of the digestive system; Z98.42 Cataract extraction status, left eye; Z98.41 Cataract extraction status, right eye; Z86.16 Personal history of COVID-19; Z79.02 Long term (current) use of antithrombotics/antiplatelets; Z79.82 Long term (current) use of aspirin; Z79.899 Other long term (current) drug therapy; Z82.49 Family history of ischemic heart disease and other diseases of the circulatory system
CPT/HCPCS: 36415; 74176; 74181; 76705; 80053; 80074; 82103; 82105; 82150; 82390; 82525; 82607; 82728; 82747; 83516; 83540; 83550; 83605; 83615; 83690; 83735; 83883; 83921; 84165; 84443; 85025; 85027; 85045; 85610; 85730; 86038; 86301; 86334; 86431; 86645; 86665; 99285

== ENCOUNTER 2024-01-21 09:44 | Day surgery (SDC) | payer MEDICARE ==
[~2024-01-21 09:44] MED LIST: ALPRAZolam 0.25 MG TAB PO PRN; ALPRAZolam 0.5 MG TAB PO PRN; ASPIRIN 325 MG TAB PO ONE; NITROGLYCERIN SL TABS 0.4 MG TAB SUBLINGUAL PRN
[2024-01-21] MEDS: SODIUM CHLORIDE 0.9% 1,000 ML in EMPTY BAG 1 BAG IV SCH (10:57)
[2024-01-21 11:01] VITALS: RESP 18; TEMP 97.4
[2024-01-21 11:04] LABS: Basophils # (A) 0.1 k/uL (0-0.2); Basophils % (A) 1 %; Eosinophils # (A) 0.8 k/uL (0-0.7); Eosinophils % (A) 9 %; HCT 43.6 % (39.0-53.0); Lymphocytes # (A) 1.8 k/uL (1.0-4.8); Lymphocytes % (A) 20 %; MCH 32.4 pg (25.0-35.0); MCHC 32.1 g/dL (31.0-37.0); Macrocytosis Slight; Mean Platelet Volume 8.2; Monocytes # (A) 0.5 k/uL (0-1.0); Monocytes % (A) 6 %; Neutrophils # (A) 5.5 k/uL (1.3-7.7); Neutrophils % (A) 62 %; Platelet Count 160 k/uL (150-450); RBC 4.32 m/uL (4.30-5.90); RDW 13.7 % (11.5-15.5); WBC 8.7 k/uL (3.8-10.6)
[2024-01-21 11:18] LABS: African American GFR (CKD) 68 (>60 ml/min/1.73 sqM); Anion Gap 7 mmol/L; Blood Urea Nitrogen 24 mg/dL (9-20); Calcium 8.9 mg/dL (8.4-10.2); Carbon Dioxide 27 mmol/L (22-30); Chloride 103 mmol/L (98-107); Glucose 96 mg/dL (74-99); Non-African American GFR(CKD) 59 (>60 ml/min/1.73 sqM); Sodium 137 mmol/L (137-145)
[2024-01-21] MEDS: LIDOCAINE 1% INJ 10MG/ML (20 ML MDV) SQ ONE (12:54)
[2024-01-21] MEDS: VERAPAMIL SYRINGE (5 MG/10 ML) INTRAARTER ONE (12:55)
[2024-01-21] MEDS: fentaNYL (PF) 50 MCG/ML 2 ML AMP IVP ONE (12:55)
[2024-01-21] MEDS: HEPARIN SODIUM 1,000 UN/ML (10ML VL) IV ONE ×2 (12:56→12:58)
[2024-01-21] MEDS: IOPAMIDOL-370 100ML BTL INJ ONE (13:08)
[2024-01-21] MEDS ORDERED: RX INFO: IV CONTRAST WAS GIVEN 1 EACH MISC MISCELLANE PRN (13:21)
--- NOTE | 2024-01-21 13:26 | P.CARDCATH ---
Date of Procedure: 01/21/24 Description of Procedure: Cardiac Catheterization: The patient is an 83-year-old male with known history of hypertension, hyperlipidemia, prior history of PCI who recently underwent an MPI for preoperative valuation and was found to have evidence of stress-induced ischemia. Recommendations were made regarding cardiac catheterization, the risks and the complications were discussed with the patient who is in full understanding and agreement. Procedure Description: Patient was brought to chemical lab technician in fasting semi-sedated state after receiving Fentanyl and Benadryl achieiving moderate conscious sedated state. Using Xylocaine Anesthesia and modified Seldinger technique, a 6-[place] sheath was introduced in the right radial artery . Subsequently, selective coronary angiography was performed using a 5-[place] 3.5 bend Sofia catheter. Multiple views of the coronary artery including hemiaxial views were obtained. The 5 [place] pigtail catheter was used to cross the aortic valve and LVEDP was calculated. Following that, catheter and sheath were removed. Hemostasis was obtained with deployment of vascular band . There was no immediate complication. Patient was returned to room in stable condition. Of note, the patient received a total of 4000 units of intravenous heparin as well as intra-arterial verapamil. Findings: Left main: This is a large size vessel, bifurcating into LAD and left circumflex, left main has no obstructive disease LAD: This is a large size vessel, reaching to the apex with a wraparound apex segment giving rise to a moderately sized diagonal branch proximally and a smaller diagonal branch in the distal segment. The LAD at the takeoff of the diagonal branch has a 40 to 50% plaque with a 60 to 70% stenosis in the ostium of the diagonal branch. The stented segment in the mid LAD is patent with no evidence of in-stent restenosis Left circumflex: This is a large dominant vessel, bifurcating distally to PDA and PLV giving rise to a large obtuse marginal branch proximally the left circumflex and its branches have no obstructive disease. RCA: This is a small nondominant vessel with a superior takeoff that has 20 to 30% plaque in the midsegment with no high-grade stenosis. Left Ventriculogram: Not performed Hemodynamics: There was no gradient across the aortic valve, LVEDP was 18-22 mmHg Conclusion: 1. Patent stent in the mid LAD 2. Mild disease in the proximal LAD with moderate significant disease at the ostium of the first diagonal branch 3. Mild disease in the RCA 4. Left dominance Recommendations: The patient will continue present therapy, I see no contraindication to his upcoming surgical intervention. The findings and the recommendations were discussed with the patient and the family and they were in full understanding and agreement. Duration of sedation is 17 minutes.
[2024-01-21] MEDS ORDERED: SODIUM CHLORIDE 0.9% 1,000 ML IV SCH (13:30)
[2024-01-21 17:35] VITALS: BP 155/72; PULSE 56
[2024-01-21] MEDS ORDERED: METOPROLOL TARTRATE 25 MG TAB PO SCH (21:00)
[2024-01-22] MEDS ORDERED: ASPIRIN 81 MG PO SCH (09:00)
[2024-01-22] MEDS ORDERED: LOSARTAN 50 MG TAB PO SCH (09:00)
== END 2024-01-21 16:50 | disposition home or self-care (01) ==
LOC: CATHCVL 09:44
PROVIDERS: ATTEND Internal Medicine Interventional Cardiology
DX: I25.10 Atherosclerotic heart disease of native coronary artery without angina pectoris (principal); I10 Essential (primary) hypertension; E78.2 Mixed hyperlipidemia; Z82.49 Family history of ischemic heart disease and other diseases of the circulatory system; Z79.899 Other long term (current) drug therapy
CPT/HCPCS: 93458; 80048; 85025; C1769 ×2; C1894; J2001; J3010; J1644; Q9967

== ENCOUNTER 2024-02-27 09:02 | Day surgery (SDC) | payer MEDICARE ==
[2024-02-25 14:28] VITALS: BMI 24.6
--- NOTE | 2024-02-27 07:39 | P.GSHP ---
History of Present Illness H&P Date: 02/27/24 Chief Complaint: Chronic cholecystitis 83-year-old male hospitalized a few months ago. Patient was found to have elevated liver enzymes. Patient had extensive workup both inpatient and subsequently outpatient. Patient's liver enzymes did come back to normal. Spoke with GI regarding the patient on more than one occasion. It is felt that the patient likely passed a stone despite MRCP showing no obvious choledocholithiasis. Liver enzymes came back down to normal. Patient with history of known gallstones and a contracted gallbladder. He was seen by cardiology and cleared for surgery. Past Medical History Past Medical History: Coronary Artery Disease (CAD), GERD/Reflux, Hypertension, Osteoarthritis (OA) Additional Past Medical History / Comment(s): COVID (08/23/21), glaucoma max eyes, adm. for abd pain November 2023- pancreatitis, acute liver & kidney failure- r/t gallbladder-is following w/Dr. Nicholas History of Any Multi-Drug Resistant Organisms: None Reported Past Surgical History: Heart Catheterization With Stent, Hernia Repair Additional Past Surgical History / Comment(s): hernia-groin, cataract max eyes Past Anesthesia/Blood Transfusion Reactions: No Reported Reaction Additional Past Anesthesia/Blood Transfusion Reaction / Comment(s): no hx blood transfusion Date of Last Stent Placement:: 2021 Smoking Status: Never smoker - Past Family History Father Family Medical History: Myocardial Infarction ([place]) Brother(s) Family Medical History: Myocardial Infarction ([place]) Medications and Allergies Home Medications Medication Instructions Recorded Confirmed Type Desloratadine 5 mg PO HS 10/28/21 02/25/24 History Metoprolol Tartrate [Lopressor] 25 mg PO BID #180 tab 10/30/21 02/25/24 Rx Brimonidine Tartrate [Alphagan P 1 drop BOTH EYES TID 12/09/23 02/25/24 History 0.2% Ophth Soln] Losartan [Cozaar] 50 mg PO QAM 12/09/23 02/25/24 History Netarsudil Mesylat/Latanoprost 1 drop BOTH EYES DAILY 12/09/23 02/25/24 History [Rocklatan 0.02%-0.005% Eye Drp] Nitroglycerin Sl Tabs [Nitrostat] 0.4 mg SL Q5M PRN 12/09/23 02/25/24 History Pilocarpine 1% Ophth Soln [Isopto 1 drop RIGHT EYE QID 12/09/23 02/25/24 History Carpine 1%] Timolol 0.5% Ophth Soln [Timoptic 1 drop BOTH EYES BID 12/09/23 02/25/24 History 0.5% Ophth Soln] Aspirin 81 mg PO DAILY 01/21/24 02/25/24 History Allergies Allergy/AdvReac Type Severity Reaction Status Date / Time LYNDA Inhibitors Allergy Anaphylaxis, Verified 02/25/24 13:59 unknown BP med causing angioedema Sulfa (Sulfonamide Allergy Rash/Hives,Reaction Verified 02/25/24 13:59 Antibiotics) to unknown sulfa eye drop Surgical - Exam Physical exam: General: Well-developed, well-nourished HEENT: Normocephalic, sclerae nonicteric Abdomen: Nontender, nondistended Extremities: No edema Neuro: Alert and oriented Assessment and Plan (1) Chronic cholecystitis Narrative/Plan: Will proceed with laparoscopic, possible open cholecystectomy at this time. Risks of bleeding, infection, bile leak, bile duct injury, retained common bile duct stone, trocar injury, conversion to an open procedure, hernia, anesthesia related complications were reviewed. The patient understands and wishes to proceed. Status: Acute Code(s): K81.1 - CHRONIC CHOLECYSTITIS SNOMED Code(s): 16152844
[2024-02-27] MEDS: ONDANSETRON 4 MG/2 ML VIAL IVP ONE (10:02)
[2024-02-27] MEDS: ACETAMINOPHEN TAB 500 MG TAB PO PRN (10:02)
[2024-02-27] MEDS: DEXAMETHASONE SOD PHOSPHATE 4 MG/ML 1 ML VIAL IV ONE (10:03)
[2024-02-27] MEDS: IV FLUID CONTINUATION 1,000 ML IV ONE ×3 (10:03→15:11)
[2024-02-27] MEDS: LACTATED RINGERS 1,000 ML IV SCH (10:03)
[2024-02-27] MEDS: HEPARIN SODIUM,PORCINE 5,000 UNIT/ML 1 ML VIAL SQ PRN (10:03)
[2024-02-27] MEDS: BUPIVACAINE (PF) 0.25% 30 ML VIAL SQ ONE ×2 (11:01→11:20)
[2024-02-27] MEDS ORDERED: MIDAZOLAM 2 MG/2 ML VIAL ONE (11:01)
[2024-02-27] MEDS ORDERED: GLYCOPYRROLATE 0.2 MG/ML 2 ML VIAL ONE (11:01)
[2024-02-27] MEDS ORDERED: SUCCINYLCHOLINE CHLORIDE 200 MG/10 ML VIAL IV ONE (11:01)
[2024-02-27] MEDS ORDERED: NEOSTIGMINE 1 MG/ML 10 ML VIAL ONE (11:01)
[2024-02-27] MEDS ORDERED: fentaNYL (PF) 50 MCG/ML 2 ML AMP ONE (11:01)
[2024-02-27] MEDS ORDERED: hydrALAZINE HCL 20 MG/ML 1 ML VIAL ONE (11:01)
[2024-02-27] MEDS ORDERED: PROPOFOL 10 MG/ML 20 ML VIAL IV ONE (11:01)
[2024-02-27] MEDS ORDERED: METOPROLOL TARTRATE 5 MG/5 ML VIAL IVP ONE (11:01)
[2024-02-27] MEDS ORDERED: ROCURONIUM 10 MG/ML (5 ML VIAL) IV ONE (11:01)
[2024-02-27] MEDS: HYDROmorphone 0.5 MG/0.5 ML SYRINGE IVP PRN (12:14)
--- NOTE | 2024-02-27 12:16 | P.OP ---
Date of Procedure: 02/27/24 Procedure(s) Performed: PREOPERATIVE DIAGNOSIS: Chronic cholecystitis POSTOPERATIVE DIAGNOSIS: Same PROCEDURE: Laparoscopic cholecystectomy SURGEON: Cristopher EBL: Minimal see anesthesia record ANESTHESIA: Gen. COMPLICATIONS: None OPERATIVE PROCEDURE: The patient was brought and placed on the operating room table in the supine position. The patient was placed under general anesthesia at that time. The abdomen was prepped and draped in the usual sterile fashion. A small vertical infraumbilical incision was made. The fascia was grasped with the Adria forceps. The fascia was retracted anteriorly. The Veress needle was advanced into the peritoneal cavity. The saline drop test was normal. Insufflation took place up to 15 mmHg. A 5 mm optical trocar was advanced and the peritoneal cavity. 2 additional 5 mm trochars were placed in the right upper quadrant under direct visualization. A 12 mm trocar was advanced into the epigastric incision site. The gallbladder was retracted superiorly and laterally. The peritoneum overlying the infundibulum was bluntly dissected. The patient's cystic duct was visualized. The junction between the cystic duct common and hepatic duct was identified. The critical view of safety was achieved after blunt dissection. The cystic duct was then divided after placement of 3 12 mm clips on the patient's side and one on the specimen side. The cystic artery was identified and clipped as well. A small vessel was seen along the gallbladder fossa and clipped as well. The gallbladder was then removed from the liver bed using electrocautery. The gallbladder was then removed from the epigastric trocar site with an Endo Catch bag. The gallbladder fossa was irrigated with saline. There was no evidence of any bleeding or biliary drainage seen. The fascia at the 12 millimeter site was closed using a Dada-Sen 0 Vicryl stitch. The trochars were then removed. The skin at all 4 sites was closed using a 4-0 Monocryl stitch. Skin glue was utilized on the incision sites. At the end of this procedure the sponge and needle counts were correct. DISPOSITION: Stable to the recovery room
[2024-02-27 12:28] VITALS: TEMP 96.8
[2024-02-27] MEDS: traMADol 50 MG TAB PO STA (14:06)
[2024-02-27 15:06] VITALS: BP 135/48; PULSE 80; RESP 16
[2024-02-27] MEDS ORDERED: IBUPROFEN 600 MG TAB PO SCH (15:30)
[2024-02-27] MEDS ORDERED: ACETAMINOPHEN TAB 325 MG TAB PO SCH (18:00)
== END 2024-02-27 15:13 | disposition home or self-care (01) ==
LOC: OR 09:02
PROVIDERS: ATTEND Surgery
DX: K81.1 Chronic cholecystitis (principal); I10 Essential (primary) hypertension; I25.10 Atherosclerotic heart disease of native coronary artery without angina pectoris; K21.9 Gastro-esophageal reflux disease without esophagitis; M19.90 Unspecified osteoarthritis, unspecified site; Z86.16 Personal history of COVID-19; Z88.1 Allergy status to other antibiotic agents; Z88.2 Allergy status to sulfonamides; Z98.890 Other specified postprocedural states; Z95.5 Presence of coronary angioplasty implant and graft; Z79.899 Other long term (current) drug therapy
CPT/HCPCS: 88304; 47562; J2250; J0330; J0360; J1644; J1100; J2710; J0690; J2405; J3010; J2704; J1170; J0665